=== PATIENT | male | born 1950 | race Caucasian/White ===

== ENCOUNTER 2018-06-03 23:01 | Inpatient (IN) | payer MEDICARE, OTHER ==
[2018-06-03 23:59] LABS: Basophils # (A) 0.1 k/uL (0-0.2); Basophils % (A) 1 %; Eosinophils # (A) 0.2 k/uL (0-0.7); Eosinophils % (A) 2 %; HCT 52.7 % (39.0-53.0); HGB 17.4 gm/dL (13.0-17.5); Lymphocytes % (A) 26 %; MCH 31.5 pg (25.0-35.0); MCHC 32.9 g/dL (31.0-37.0); MCV 95.6 fL (80.0-100.0); Mean Platelet Volume 7.4; Monocytes # (A) 0.8 k/uL (0-1.0); Monocytes % (A) 7 %; Neutrophils % (A) 61 %; Platelet Count 267 k/uL (150-450); RBC 5.52 m/uL (4.30-5.90); RDW 13.6 % (11.5-15.5); WBC 11.5 k/uL (3.8-10.6)
[2018-06-04 00:08] LABS: Anion Gap 12 mmol/L; Blood Urea Nitrogen 16 mg/dL (9-20); Calcium 9.8 mg/dL (8.4-10.2); Carbon Dioxide 22 mmol/L (22-30); Chloride 100 mmol/L (98-107); Glucose 147 mg/dL (74-99); Potassium 4.4 mmol/L (3.5-5.1); Sodium 134 mmol/L (137-145)
[2018-06-04 00:34] LABS: Creatine Kinase MB 1.7 ng/mL (0.0-2.4)
--- NOTE | 2018-06-04 00:35 | XR ---
EXAMINATION TYPE: XR chest 2V DATE OF EXAM: 06/04/2018 COMPARISON: 04/21/2015 HISTORY: Chest pain TECHNIQUE: Frontal and lateral views of the chest are obtained. FINDINGS: There is some linear density in the right upper lobe consistent with scarring. The other l ronald rodriguez are fairly clear. Heart is normal. Thoracic aorta is atheromatous. There is no pleural eff usion. There are chest leads. There is some spurring in the thoracic spine. IMPRESSION: Right upper lobe scarring. Normal heart. No acute lung disease.
[2018-06-04 00:36] LABS: Troponin I 1.64 ng/mL (0.000-0.034)
--- NOTE | 2018-06-04 00:38 | ED ---
General Adult HPI - General Chief complaint: Chest Pain Stated complaint: Chest pain Source: patient Mode of arrival: ambulatory Limitations: no limitations - Related Data Home Medications Medication Instructions Recorded Confirmed No Known Home Medications 06/03/18 06/03/18 Allergies Allergy/AdvReac Type Severity Reaction Status Date / Time No Known Allergies Allergy Verified 06/03/18 23:13 Review of Systems ROS Statement: Those systems with pertinent positive or pertinent negative responses have been documented in the HPI. ROS Other: All systems not noted in ROS Statement are negative. Past Medical History Past Medical History: Coronary Artery Disease (CAD), Chest Pain / Angina, GERD/ Reflux, Hyperlipidemia, Hypertension, Myocardial Infarction (RI), Vascular Disorder Additional Past Medical History / Comment(s): 04/21/15 Pt presented to [facility] ER with chest pain onset 0430 this AM. Pt also had dizziness, lightheadedness associated with the pain. Pt stated in ER that he has been off his meds for about 1 1/2 yrs. Pt being admitted with clinical impression of chest pain. Other HX: NSTEMI 08/09/12, PVD, PAD, R ankle fx 10 yrs ago, infrequent GERD. Last Myocardial Infarction Date:: 08/09/12 History of Any Multi-Drug Resistant Organisms: None Reported Past Surgical History: Heart Catheterization With Stent, Orthopedic Surgery Additional Past Surgical History / Comment(s): 07/2012 PTCA with Stent to intermediate ramus branch, cervical fusion, aortagrams, 11/08/12 L distal SFA atherectomy/ [employer] L SFA, Past Anesthesia/Blood Transfusion Reactions: No Reported Reaction Date of Last Stent Placement:: 07/2012 Past Psychological History: No Psychological Hx Reported Smoking Status: Current every day smoker - Past Family History Father Additional Family Medical History / Comment(s): Pt able recall that his father had a colostomy and in his 70's. Mother Family Medical History: Cancer Additional Family Medical History / Comment(s): Mother of cervical cancer. She was 80 yrs old. General Exam Limitations: no limitations Course Vital Signs 06/03/18 23:04 Temperature 97.7 F Pulse Rate 94 Respiratory 20 Rate Blood Pressure 180/89 O2 Sat by Pulse 97 Oximetry Medical Decision Making - Medical Decision Making Dictation was produced using [employer] dictation software. please excuse any grammatical, word or spelling errors. Chief Complaint: 68-year-old male past medical history of coronary artery disease, dyslipidemia, hypertension presents with chest pain. History of Present Illness: Patient is a 68-year-old male past medical history of coronary artery disease presents with episodic chest pain since last night. Patient states she's been having sharp chest pain that substernal. He had an episode last night. Repeat episode today lasted for several minutes. He took a nitroglycerin with improvement of his symptoms. Patient has a cough, fever, chills. Denies any exertional activity recently. Patient feels a symptomatic at this time. Denies any radiation of symptoms to the shoulders, jaw. No associated diaphoresis, nausea or vomiting. The ROS documented in this emergency department record has been reviewed and confirmed by me. Those systems with pertinent positive or negative responses have been documented in the HPI. All other systems are other negative and/or noncontributory. PHYSICAL EXAM: General Impression: Alert and oriented x3, not in acute distress HEENT: Normocephalic atraumatic, extra-ocular movements intact, pupils equal and reactive to light bilaterally, mucous membranes moist. Cardiovascular: Heart regular rate and rhythm, S1&S2 audible, no murmurs, rubs or gallops Chest: Lungs clear to auscultation bilaterally, no rhonchi, no wheeze, no rales Abdomen: Bowel sounds present, abdomen soft, non-tender, non-distended, no organomegaly Musculoskeletal: Pulses present and equal in all extremities, no peripheral edema Motor: Power 5/5 bilaterally, no focal deficits noted Neurological: CN II-XII grossly intact, no focal motor or sensory deficits noted Skin: Intact with no visualized rashes Psych: Normal affect and mood ED course: 68-year-old male presents with atypical chest pain with typical features. Patient has a lot of risk factors including previous myocardial infarction status post stenting. Patient also reports that his symptoms improved nitroglycerin. As upon arrival are within acceptable limits. Patient is asymptomatic at this time. EKG does not show any signs of ischemia or myocardial infarction.Laboratory evaluation was performed. CBC unremarkable. Metabolic panel was obtained. Cardiac enzymes shows troponin of 1.640. Patient started on heparin. Discussed patient case with Dr. Cruz at 12:46 AM. Started that his troponin is 1.640. He was told that there EKG changes in the lateral leads over no findings of STEMI. Dr. Cruz recommended the patient be admitted started on heparin and given aspirin. Repeat EKG was performed approximately one hour after initial EKG showing deep inverted T waves in the precordial leads again there is no demonstration of ST segment elevation. We discussed patient case with Dr. Cruz who indicates that Cosmetician does not need to be activated at this time given that there is no ST elevation and patient is not having active chest pain at this time. Patient to be admitted to cardiac telemetry for serial troponins and cardiac monitoring EKG interpretation: Ventricular rate 91, sinus rhythm, WI interval 164, QS 106, QTC 445. No WI prolongation, no QTC prolongation, no ST or T-wave changes noted. EKG compared to 04/21/2015 showing no changes. Overall, this EKG is unremarkable - Lab Data Result diagrams: 06/03/18 23:22 06/03/18 23:22 Lab Results 06/03/18 06/03/18 06/03/18 Range/Units 23:22 23:22 23:22 WBC 11.5 H (3.8-10.6) k/uL RBC 5.52 (4.30-5.90) m/uL Hgb 17.4 (13.0-17.5) gm/dL Hct 52.7 (39.0-53.0) % MCV 95.6 (80.0-100.0) fL MCH 31.5 (25.0-35.0) pg MCHC 32.9 (31.0-37.0) g/dL RDW 13.6 (11.5-15.5) % Plt Count 267 (150-450) k/uL Neutrophils % 61 % Lymphocytes % 26 % Monocytes % 7 % Eosinophils % 2 % Basophils % 1 % Neutrophils # 7.0 (1.3-7.7) k/uL Lymphocytes # 3.0 (1.0-4.8) k/uL Monocytes # 0.8 (0-1.0) k/uL Eosinophils # 0.2 (0-0.7) k/uL Basophils # 0.1 (0-0.2) k/uL Sodium 134 L (137-145) mmol/L Potassium 4.4 (3.5-5.1) mmol/L Chloride 100 (98-107) mmol/L Carbon Dioxide 22 (22-30) mmol/L Anion Gap 12 mmol/L BUN 16 (9-20) mg/dL Creatinine 0.77 (0.66-1.25) mg/dL Est GFR (CKD-EPI)AfAm >90 (>60 ml/min/1.73 sqM) Est GFR (CKD-EPI)NonAf >90 (>60 ml/min/1.73 sqM) Glucose 147 H (74-99) mg/dL Calcium 9.8 (8.4-10.2) mg/dL Total Creatine Kinase 64 (55-170) U/L CK-MB (CK-2) 1.7 (0.0-2.4) ng/mL CK-MB (CK-2) Rel Index 2.7 Troponin I 1.640 H* (0.000-0.034) ng/mL Disposition Clinical Impression: ACS (acute coronary syndrome) Disposition: ADMITTED IP TO THIS [facility] Condition: Critical Referrals: David Ellington MD [Primary Care Provider] - 1-2 days Decision Time: 00:57
[2018-06-04] MEDS ORDERED: ASPIRIN 81 MG PO STA (00:40)
[2018-06-04] MEDS ORDERED: HEPARIN SODIUM,PORCINE 5,000 UNIT/ML 1 ML VIAL IV PRN (00:40)
[2018-06-04] MEDS ORDERED: HEPARIN SODIUM,PORCINE 5,000 UNIT/ML 1 ML VIAL IV ONE (00:40)
[2018-06-04] MEDS ORDERED: NITROGLYCERIN SL TABS 0.4 MG TAB SUBLINGUAL PRN ×3 (01:01→13:35)
[2018-06-04] MEDS: HEPARIN SOD,PORK IN 0.45% NACL 25,000 UNIT in 0.45% NACL 1 250ML.BAG IV SCH ×2 (01:07→05:18)
[2018-06-04] MEDS: MAGNESIUM SULFATE-D5W PMX 1 GM in DEXTROSE/WATER 1 100ML.BAG IVPB SCH ×2 (01:12→02:05)
[2018-06-04 01:18] LABS: D-Dimer 0.57 mg/L FEU (<0.60); INR 0.9 (<1.2); Partial Thromboplastin Time 25.1 sec (22.0-30.0); Prothrombin Time 9.9 sec (9.0-12.0)
[2018-06-04 01:58] VITALS: BMI 27.6
[2018-06-04 06:26] LABS: Creatine Kinase MB 1.5 ng/mL (0.0-2.4)
[2018-06-04 06:27] LABS: Troponin I 1.96 ng/mL (0.000-0.034)
[2018-06-04] MEDS ORDERED: ALPRAZolam 0.25 MG TAB PO PRN (08:53)
[2018-06-04] MEDS ORDERED: ALPRAZolam 0.5 MG TAB PO PRN (08:53)
[2018-06-04] MEDS ORDERED: ASPIRIN 325 MG TAB PO STA ×2 (08:53→10:17)
[2018-06-04] MEDS ORDERED: SODIUM CHLORIDE 0.9% 1,000 ML in EMPTY BAG 1 BAG IV ONE (08:53)
[2018-06-04] MEDS ORDERED: ATORVASTATIN 80 MG TAB PO STA (08:57)
--- NOTE | 2018-06-04 09:59 | CONS ---
CONSULTATION CHIEF COMPLAINT: Chest pain. Josiah is a 68-year-old gentleman with history of coronary artery disease on medical therapy, who presented to hospital complaining of chest pain that has been going on for the last several days, moderate to severe intensity, precordial that radiated down both his arms. On admission, his EKG revealed sinus rhythm with extensive anterolateral T- wave inversions. Patient had a cardiac catheterization in April of 2015 that revealed a 40% to 50% stenosis involving proximal circumflex coronary artery and totally occluded distal circumflex coronary artery, small nondominant right coronary artery, patent stent within the first diagonal branch and a totally occluded small second diagonal branch. LAD itself is free of disease. Given patient's clinical presentation, EKG changes and the elevated troponins at 1.6 and 1.9, I advised the patient to undergo cardiac catheterization for further evaluation. He had been explained of risks, benefits and alternatives, understood and accepted. MEDICATIONS: None. ALLERGIES: None. FAMILY HISTORY: Negative for premature coronary artery disease. SOCIAL HISTORY: Significant for smoking and ETOH abuse. There is no history of drug abuse review of systems. REVIEW OF SYSTEMS: HEENT is unremarkable. CARDIAC: As described above. RESPIRATORY: As described above. GI: Negative. GENITOURINARY: Negative. ALLERGY/IMMUNOLOGY: Negative. SKIN: Negative. MUSCULOSKELETAL: Significant for arthritis. PSYCHOSOCIAL: Negative. ENDOCRINE: Negative. CONSTITUTIONAL: Negative. ONCOLOGICAL: Negative. Rest of the system review is not relevant. EXAM: Patient is comfortable at rest. Afebrile. Vital signs are stable. There is no jugular venous distention. Carotid upstroke is normal. There is no bruit. Chest exam reveals good air entry bilaterally. Heart exam reveals first and second heart sounds. Has a systolic murmur at the left lower sternal border. Abdomen is soft. Exam of extremities did not reveal any edema. Peripheral pulses are felt. LABS: Show a hemoglobin of 17.4, platelet count is 260, potassium is 4.4, creatinine is 0.7. Tropes are elevated at 1.6 and 1.9. EKG is abnormal. ASSESSMENT: Acute non-ST segment elevation myocardial infarction. PLAN: Patient will undergo cardiac catheterization with a view to performing angioplasty. MMODL / IJN: [id number] /
[2018-06-04] MEDS ORDERED: LIDOCAINE 1% INJ 10MG/ML (20 ML MDV) ONE (10:42)
[2018-06-04] MEDS ORDERED: IV FLUID CONTINUATION 1,000 ML IV ONE (11:01)
[2018-06-04] MEDS: MIDAZOLAM 2 MG/2 ML VIAL IV ONE ×2 (11:14→12:49)
[2018-06-04] MEDS ORDERED: LIDOCAINE 1% INJ 10MG/ML (20 ML MDV) SQ ONE (11:16)
[2018-06-04] MEDS ORDERED: TICAGRELOR 90 MG TAB ONE (12:05)
[2018-06-04] MEDS ORDERED: BIVALIRUDIN BOLUS 250 MG/50 ML IV ONE (12:08)
[2018-06-04] MEDS ORDERED: TICAGRELOR 90 MG TAB PO ONE (12:10)
[2018-06-04] MEDS ORDERED: BIVALIRUDIN 250 MG in SODIUM CHLORIDE 0.9% 50 ML IV ONE ×2 (12:10→13:03)
[2018-06-04] MEDS ORDERED: IOPAMIDOL-370 125ML BTL INJ ONE (12:11)
--- NOTE | 2018-06-04 12:14 | CC ---
CARDIAC CATHETERIZATION REPORT INDICATION: Non ST-segment elevation CT. PROCEDURE NOTE: After obtaining informed consent, left heart catheterization and coronary angiogram are performed via the right femoral artery using standard Emilio catheters. Patient tolerated the procedure well without any obvious immediate complications. The patient received moderate conscious sedation. Total sedation time was 17 minutes. FINDINGS: 1. HEMODYNAMICS: Left ventricular end-diastolic pressure is 18 mm. There is no significant gradient across aortic valve. 2. LEFT VENTRICULOGRAM: Left ventriculogram is not performed. 3. ANGIOGRAPHIC DATA. Left Main Coronary Artery: Left main coronary artery appears calcified but is free of significant stenosis. Divides into left anterior descending coronary artery and circumflex coronary artery. LAD gives off a large caliber diagonal branch that was previously stented. Stent appears patent. Past the stent there is moderate stenotic lesion noted. LAD shows an 80% focal stenosis in its midportion. The circumflex coronary artery is a large dominant vessel that shows a 90% focal stenosis before it bifurcates into PDA and PLV. CONCLUSION: Severe 2 vessel coronary artery disease as described above. PLAN: Angiographic data was reviewed by Dr. Jc the on-call bowl topper. We will attempt angioplasty of the circumflex which seems the more acute lesion and if it goes well, will perform angioplasty of the LAD also. MMODL / IJN: [id number] /
[2018-06-04] MEDS ORDERED: NITROGLYCERIN 1000MCG/10ML SYRINGE INTRACORON ONE ×2 (12:32→13:21)
[2018-06-04] MEDS ORDERED: IOPAMIDOL-370 100ML BTL INJ ONE ×2 (12:46→13:22)
[2018-06-04 12:49] LABS: Cholesterol 203 mg/dL (<200); HDL Cholesterol 45 mg/dL (40-60); LDL Cholesterol,Calculated 129 mg/dL (0-99); Triglycerides 144 mg/dL (<150)
[2018-06-04] MEDS ORDERED: ONDANSETRON 4 MG/2 ML VIAL ONE (12:59)
[2018-06-04] MEDS ORDERED: ONDANSETRON 4 MG/2 ML VIAL IVP ONE (13:00)
[2018-06-04 13:02] LABS: Creatine Kinase MB 1.4 ng/mL (0.0-2.4)
[2018-06-04 13:07] LABS: Troponin I 2.06 ng/mL (0.000-0.034)
[2018-06-04] MEDS ORDERED: RX INFO: IV CONTRAST WAS GIVEN 1 EACH MISC MISCELLANE PRN (13:35)
[2018-06-04] MEDS ORDERED: ATROPINE SULFATE 0.1 MG/ML 10ML SYRINGE IV PRN (13:35)
[2018-06-04] MEDS ORDERED: ZOLPIDEM 5 MG TAB PO PRN (13:35)
[2018-06-04] MEDS ORDERED: MAG HYDROX/AL HYDROX/SIMETH 30 ML CUP PO PRN (13:35)
[2018-06-04] MEDS ORDERED: SODIUM CHLORIDE 0.9% 1,000 ML IV SCH (13:45)
--- NOTE | 2018-06-04 15:26 | PTCA ---
PERCUTANEOUSTRANS CORORONARY ANGIOGRAPHY Mr. Hutchins is a 68-year-old male with known history of coronary artery disease, history of noncompliance who has stopped all his medication, history of smoking, who presented with non ST-segment elevation myocardial infarction, underwent cardiac catheterization by Dr. Cruz and was found to have a 99% stenosis in the mid dominant left circumflex as well as calcified 70% to 80% stenosis in the proximal LAD. In view of that, recommendation regarding angioplasty and stenting, the procedures, risks and complications were discussed with the patient who is in full understanding and agreement. The procedure is a 6-Armenian FR4 guiding catheter introduced into the system after cannulating the left main, a 0.014 balanced medium weight J-wire was advanced into the system but was unable to cross the lesion. Subsequently, a 0.014 whisper J- wire was advanced across the lesion, positioned distally with the help of a FineCross catheter. The FineCross catheter was removed and a 2.5 x 12 mm Trek balloon was advanced and one inflation at 8 atmospheres was done. Following that, the balloon was removed and another whisper 0.014 balanced medium J-wire was advanced next to the first one in a rah fashion. Subsequently attempt to advance a 2.5 x 12 mm Xience Roxane stent, a 2.5 x 8 mm Xience Roxane stent and a 2.0 x 8 mm rosario stent were unsuccessful to advance into the proximal left circumflex because of tortuosity and calcification in spite of attempting to use a GuideLiner. At that time using the FineCross catheter, the whisper J-wire was exchanged to a Mailman 0.014 and positioned distally and another 0.014 whisper J-wire was positioned in the distal left circumflex. With the Mailman and the whisper J I was able to advance and position the 2.5 X12 mm Xience Roxane in the mid lesion of the circumflex. The stent was deployed, postdilated to 16 atmospheres. After the last inflation, after appropriate wait, the balloon and the guidewire were withdrawn back in the guiding catheter. Images were obtained and repeated. Those images reveal stable successful stenting. At that point, the guiding catheter, the balloon and the guidewire removed. The sheath was removed. Hemostasis was obtained with Angio-Seal. There was no immediate complication. Patient is returned to his room in stable condition. Of note, the patient had chest discomfort with no significant EKG changes. The chest discomfort resolved at the end of the procedure. RESULTS: Successful stenting of the mid left circumflex in a heavily calcified segment with reduction of stenosis from 99% to 0%. RECOMMENDATION: Patient be continued on aspirin, Brilinta, beta sun, JATINDER inhibitor, and statin. Depending on his progress, he will be evaluated to undergo percutaneous revascularization of his LAD. Those findings and recommendation were discussed with the patient and his family and are in full understanding and agreement. Duration of the procedure is 80 minutes. MMODL / IJN: [id number] / MTDD
--- NOTE | 2018-06-04 16:50 | P.HPIM ---
History of Present Illness H&P Date: 06/04/18 Chief Complaint: Chest pain Chief Complaint: Chest pain, history of CAD, PAD, hypertension, hyperlipidemia 67-year-old male one of Dr. Ellington's for which he hasn't been seen since the past 3 years patient with past medical history of CAD 2013 post-PCI history of PAD post PTBA in the past with history of hypertension and hyperlipidemia presenting to the emergency room secondary to chest discomfort, off and on for the past 2 weeks however this became intense the morning of admission requiring 1 tablet of sublingual nitroglycerin, patient has been noncompliant with medications for the past 3 years. This has relieved the pain , and subsequently was seen in the emergency room and was admitted for a non- STEMI patient complains of chest pain intermittently, along with effort related shortness of breath, patient denies any lower extremity edema, no cough no fever no chills, denies any palpitations. In the emergency room EKG shows normal sinus rhythm with occasional PVCs, left atrial enlargement, ST-T wave changes with asymmetric T-T changes depression in V4 V5 V6, and lids 23 and aVF. Troponin on admission was 1.6, 1.9, 2.0, LDL is 129 d-dimer negative INR 1.9. Consults were made with Dr. Redmond performed cardiac cath 06/04/2018 showing moderate stenotic lesion LAD 80%, 90% circumflex before it bifurcates into the PDA Dr. Jc is on-call interventional stenting off the mid circumflex 99% stenosis which is heavily calcified, with successful stenting down to 0. Review of Systems Constitutional: Reports as per HPI, Denies anorexia, Denies chills, Denies chronic headaches, Denies chronic pain, Denies daytime sleepiness, Denies fatigue, Denies fever, Denies lethargy, Denies malaise, Denies night sweats, Denies poor appetite, Denies sweats, Denies weakness, Denies weight gain, Denies weight loss Ears, nose, mouth and throat: Reports as per HPI, Denies ant. neck pain, Denies bleeding gums, Denies dental pain, Denies dysphagia, Denies epistaxis, Denies headache, Denies hoarseness, Denies mouth pain, Denies nasal congestion, Denies nasal discharge, Denies neck fullness/pressure, Denies neck lump, Denies nose pain, Denies odynophagia, Denies post-nasal drip, Denies sinus pain, Denies sinus pressure, Denies swelling in mouth, Denies swelling in throat, Denies sore throat, Denies vertigo, Denies voice changes Cardiovascular: Reports as per HPI, Reports chest pain, Reports decreased exercise tolerance, Reports shortness of breath Respiratory: Reports as per HPI, Denies congestion, Denies cough, Denies cough with sputum, Denies dyspnea, Denies excessive sputum, Denies hemoptysis, Denies home oxygen, Denies pain, Denies pain on inspiration, Denies pleurisy, Denies respiratory infections, Denies sleep apnea, Denies snoring, Denies wheezing Gastrointestinal: Reports as per HPI, Denies abdominal pain, Denies belching, Denies bloating, Denies BRBPR, Denies change in bowel habits, Denies coffee ground emesis, Denies constipation, Denies diarrhea, Denies dyspepsia, Denies early satiety, Denies excessive gas, Denies heartburn, Denies hematemesis, Denies hematochezia, Denies indigestion, Denies jaundice, Denies lactose intolerance, Denies loss of appetite, Denies melena, Denies nausea, Denies vomiting Genitourinary: Reports as per HPI, Denies decreased libido, Denies difficulties fathering child, Denies discharge, Denies dysuria, Denies erectile dysfunction, Denies flank pain, Denies genital pain, Denies genital sores, Denies hematuria, Denies impotence, Denies incontinence, Denies kidney stones, Denies nocturia, Denies polyuria, Denies testicular lump, Denies testicular pain, Denies urinary frequency, Denies urinary hesitancy, Denies urinary retention Musculoskeletal: Reports as per HPI Integumentary: Reports as per HPI Neurological: Reports as per HPI, Denies aphasia, Denies ataxia, Denies balance difficulties, Denies burning pain, Denies change in mentation, Denies change in smell/taste, Denies change in speech, Denies confusion, Denies convulsions, Denies double vision, Denies gait dysfunction, Denies head injury, Denies headaches, Denies hearing difficulties, Denies lack of coordination, Denies loss of vision, Denies memory loss, Denies migraines, Denies motor disturbance, Denies numbness, Denies paralysis, Denies paresthesias, Denies seizures, Denies sensory deficit, Denies spasticity, Denies syncope, Denies tic, Denies tingling , Denies transient paralysis, Denies tremors, Denies vertigo, Denies weakness, Denies visual changes Psychiatric: Reports as per HPI Endocrine: Reports as per HPI Hematologic/Lymphatic: Reports as per HPI, Denies easy bleeding, Denies easy bruising, Denies lymphadenopathy, Denies lymphedema, Denies thrombophilia Allergic/Immunologic: Reports as per HPI, Denies allergic rhinitis, Denies anaphylaxis, Denies angioedema, Denies gluten intolerance, Denies persistent infections, Denies seasonal allergies, Denies urticaria, Denies wheezing Past Medical History Past Medical History: Coronary Artery Disease (CAD), Chest Pain / Angina, GERD/ Reflux, Hyperlipidemia, Hypertension, Myocardial Infarction (AR), Vascular Disorder Additional Past Medical History / Comment(s): 04/21/15 Pt presented to [facility] ER with chest pain onset 0430 this AM. Pt also had dizziness, lightheadedness associated with the pain. Pt stated in ER that he has been off his meds for about 1 1/2 yrs. Pt being admitted with clinical impression of chest pain. Other HX: NSTEMI 08/09/12, PVD, PAD, R ankle fx 10 yrs ago, infrequent GERD. Last Myocardial Infarction Date:: 08/09/12 History of Any Multi-Drug Resistant Organisms: None Reported Past Surgical History: Heart Catheterization With Stent, Orthopedic Surgery Additional Past Surgical History / Comment(s): 07/2012 PTCA with Stent to intermediate ramus branch, cervical fusion, aortagrams, 11/08/12 L distal SFA atherectomy/ [employer] L SFA, Past Anesthesia/Blood Transfusion Reactions: No Reported Reaction Date of Last Stent Placement:: 07/2012 Past Psychological History: No Psychological Hx Reported Additional Psychological History / Comment(s): Pt lives with his brother. He is independent. He uses no assistive device. He drives a car. Smoking Status: Current every day smoker Past Alcohol Use History: Daily Additional Past Alcohol Use History / Comment(s): Pt states he started smoking around 1982 and is about 1 ppd smoker. He drinks alcohol daily-he likes beer or mixed drinks. He states he probably goes over 14 drinks a week. Past Drug Use History: None Reported - Past Family History Father Additional Family Medical History / Comment(s): Pt able recall that his father had a colostomy and in his 70's. Mother Family Medical History: Cancer Additional Family Medical History / Comment(s): Mother of cervical cancer. She was 80 yrs old. Medications and Allergies Home Medications Medication Instructions Recorded Confirmed Type No Known Home Medications 06/03/18 06/03/18 History Allergies Allergy/AdvReac Type Severity Reaction Status Date / Time No Known Allergies Allergy Verified 06/03/18 23:13 Physical Exam Vitals: Vital Signs Temp Pulse Pulse Resp BP BP Pulse Ox 06/04/18 08:00 97.4 F L 18 145/67 06/04/18 04:00 66 16 112/55 98 06/04/18 03:18 16 06/04/18 01:25 96.2 F L 86 16 176/79 95 06/04/18 01:13 80 16 151/75 97 06/04/18 01:00 97.7 F 74 18 151/70 97 06/03/18 23:04 97.7 F 94 20 180/89 97 Intake and Output 06/03/18 06/04/18 06/04/18 22:59 06:59 14:59 Intake Total 50 Balance 50 Intake: IV 50 Oral 0 Other: Voiding Method Toilet # Voids 0 Weight 90 kg - Constitutional General appearance: cooperative, no acute distress - EENT Eyes: anicteric sclerae, EOMI, PERRLA, dentition normal, normal appearance ENT: hearing grossly normal, NA/AT, normal oropharynx - Neck Neck: no lymphadenopathy, normal ROM, no other, no rigidity, no stridor, no thyromegaly - Respiratory Respiratory: bilateral: CTA, negative: diminished, dullness, rales, rhonchi, wheezing, prolonged expiration - Cardiovascular Rhythm: regular Heart sounds: normal: S1, S2 Abnormal Heart Sounds: no systolic murmur, no diastolic murmur, no rub, no S3 Gallop, no S4 Gallop, no click, no other - Gastrointestinal General gastrointestinal: normal bowel sounds, soft - Integumentary Integumentary: decreased turgor, normal (Dorsalis pedis pulses left side is diminished or absent) - Neurologic Neurologic: CNII-XII intact - Musculoskeletal Musculoskeletal: gait normal, strength equal bilaterally - Psychiatric Psychiatric: A&O x's 3, appropriate affect Results CBC & Chem 7: 06/03/18 23:22 06/03/18 23:22 Labs: Abnormal Lab Results - Last 24 Hours (Table) 06/03/18 06/03/18 06/03/18 Range/Units 23:22 23:22 23:22 WBC 11.5 H (3.8-10.6) k/uL Sodium 134 L (137-145) mmol/L Glucose 147 H (74-99) mg/dL Troponin I 1.640 H* (0.000-0.034) ng/mL Cholesterol (<200) mg/dL LDL Cholesterol, Calc (0-99) mg/dL 06/04/18 06/04/18 06/04/18 Range/Units 05:41 11:51 11:51 WBC (3.8-10.6) k/uL Sodium (137-145) mmol/L Glucose (74-99) mg/dL Troponin I 1.960 H* 2.060 H* (0.000-0.034) ng/mL Cholesterol 203 H (<200) mg/dL LDL Cholesterol, Calc 129 H (0-99) mg/dL Laboratory Results WBC 11.5 k/uL (3.8-10.6) H 06/03/18 23:22 RBC 5.52 m/uL (4.30-5.90) 06/03/18 23:22 Hgb 17.4 gm/dL (13.0-17.5) 06/03/18 23:22 Hct 52.7 % (39.0-53.0) 06/03/18 23:22 MCV 95.6 fL (80.0-100.0) 06/03/18 23:22 MCH 31.5 pg (25.0-35.0) 06/03/18 23:22 MCHC 32.9 g/dL (31.0-37.0) 06/03/18 23:22 RDW 13.6 % (11.5-15.5) 06/03/18 23:22 Plt Count 267 k/uL (150-450) 06/03/18 23:22 Neutrophils % 61 % 06/03/18 23:22 Lymphocytes % 26 % 06/03/18 23:22 Monocytes % 7 % 06/03/18 23:22 Eosinophils % 2 % 06/03/18 23:22 Basophils % 1 % 06/03/18 23:22 Neutrophils # 7.0 k/uL (1.3-7.7) 06/03/18 23:22 Lymphocytes # 3.0 k/uL (1.0-4.8) 06/03/18 23:22 Monocytes # 0.8 k/uL (0-1.0) 06/03/18 23:22 Eosinophils # 0.2 k/uL (0-0.7) 06/03/18 23:22 Basophils # 0.1 k/uL (0-0.2) 06/03/18 23:22 PT 9.9 sec (9.0-12.0) 06/04/18 00:55 INR 0.9 (<1.2) 06/04/18 00:55 APTT 29.0 sec (22.0-30.0) 06/04/18 08:20 D-Dimer 0.57 mg/L FEU (<0.60) 06/04/18 00:55 Sodium 134 mmol/L (137-145) L 06/03/18 23:22 Potassium 4.4 mmol/L (3.5-5.1) 06/03/18 23:22 Chloride 100 mmol/L (98-107) 06/03/18 23:22 Carbon Dioxide 22 mmol/L (22-30) 06/03/18 23:22 Anion Gap 12 mmol/L 06/03/18 23:22 BUN 16 mg/dL (9-20) 06/03/18 23:22 Creatinine 0.77 mg/dL (0.66-1.25) 06/03/18 23:22 Est GFR (CKD-EPI)AfAm >90 (>60 ml/min/1.73 sqM) 06/03/18 23:22 Est GFR (CKD-EPI)NonAf >90 (>60 ml/min/1.73 sqM) 06/03/18 23:22 Glucose 147 mg/dL (74-99) H 06/03/18 23:22 Calcium 9.8 mg/dL (8.4-10.2) 06/03/18 23:22 Magnesium 2.2 mg/dL (1.6-2.3) 06/03/18 23:22 Total Creatine Kinase 57 U/L (55-170) 06/04/18 11:51 CK-MB (CK-2) 1.4 ng/mL (0.0-2.4) 06/04/18 11:51 CK-MB (CK-2) Rel Index 2.5 06/04/18 11:51 Troponin I 2.060 ng/mL (0.000-0.034) H* 06/04/18 11:51 Triglycerides 144 mg/dL (<150) 06/04/18 11:51 Cholesterol 203 mg/dL (<200) H 06/04/18 11:51 LDL Cholesterol, Calc 129 mg/dL (0-99) H 06/04/18 11:51 HDL Cholesterol 45 mg/dL (40-60) 06/04/18 11:51 Thrombosis Risk Factor Assmnt - DVT/VTE Prophylaxis DVT/VTE Prophylaxis: Pharmacologic Prophylaxis ordered - Choose All That Apply Any of the Below Risk Factors Present?: Yes Each Factor Represents 1 point: Acute AR, Obesity (BMI >25) Other Risk Factors: Yes Each Risk Factor Represents 2 Points: Age 61-74 years Thrombosis Risk Factor Assessment Total Risk Factor Score: 4 Thrombosis Risk Factor Assessment Level: Moderate Risk Assessment and Plan Plan: 1 acute NSTEMI had history of CAD post PCI in the past but still smoking noncompliance regimen requiring successful stenting of the left circumflex he also has residual stenosis focal stenosis in the LAD midportion, 80%,, the previously stented diagonal branch free of stenosis currently requiring metoprolol 25 mg twice a day, Alimta 90 mg twice a day, Lipitor 80 mg daily lisinopril 5 mg twice a day 2 medication noncompliance prior to admission, regimen is reinforced for future risk reduction 3 hypertension: See above 4 hyperlipidemia: on atorvastatin 80 mg a day continue medication. 5 hypothyroidism: Not on medication prior to admission will recheck TSH 6 smoking: Smoking cessation was addressed patient will be on nicotine patch 14 mg daily offered, not yet ready for this. 7 GI prophylaxis: Patient will be on Pepcid 20 mg daily. DVT prophylaxis: Patient is on heparin drip on admission now will be transitioned to subcu heparin Mild polycythemia: Most likely secondary to smoking we watch symptoms closely. Hyper glycemia: Accu-Chek with sliding scales coverage and be done watch blood sugar. Hemoglobin A1c to be done PAD, with claudication left leg, prior PTBA left leg, unknown site patient needs to arrange for outpatient vascular imaging studies, smoking cessation CODE STATUS: Full code.
[2018-06-04] MEDS: METOPROLOL TARTRATE 25 MG TAB PO SCH (19:58)
[2018-06-04] MEDS: TICAGRELOR 90 MG TAB PO SCH (19:58)
[2018-06-04] MEDS: LISINOPRIL 5 MG TAB PO SCH (19:58)
[2018-06-04 20:03] VITALS: RESP 16
[2018-06-04 21:40] LABS: Hemoglobin A1C 5.9 % (4.0-6.0)
[2018-06-05 05:47] LABS: Anion Gap 6 mmol/L; Blood Urea Nitrogen 12 mg/dL (9-20); Calcium 9.1 mg/dL (8.4-10.2); Carbon Dioxide 23 mmol/L (22-30); Chloride 105 mmol/L (98-107); Cholesterol 188 mg/dL (<200); Glucose 105 mg/dL (74-99); HDL Cholesterol 45 mg/dL (40-60); LDL Cholesterol,Calculated 124 mg/dL (0-99); Potassium 4.4 mmol/L (3.5-5.1); Sodium 134 mmol/L (137-145); Triglycerides 93 mg/dL (<150)
[2018-06-05] MEDS ORDERED: ASPIRIN 81 MG PO SCH (09:00)
[2018-06-05] MEDS ORDERED: ASPIRIN 325 MG TAB PO SCH (09:00)
[2018-06-05] MEDS: TICAGRELOR 90 MG TAB PO SCH (09:55)
[2018-06-05] MEDS: LISINOPRIL 5 MG TAB PO SCH (09:55)
[2018-06-05] MEDS: METOPROLOL TARTRATE 25 MG TAB PO SCH (09:55)
[2018-06-05 10:42] VITALS: TEMP 96.8
--- NOTE | 2018-06-05 10:53 | ECHOF ---
Referral Reason:cad MEASUREMENTS -------- HEIGHT: 180.3 cm WEIGHT: 88.0 kg BP: 132/60 RVIDd: 3.2 cm (< 3.3) IVSd: 1.6 cm (0.6 - 1.1) LVIDd: 4.8 cm (3.9 - 5.3) LVPWd: 1.5 cm (0.6 - 1.1) IVSs: 2.0 cm LVIDs: 3.7 cm LVPWs: 1.9 cm LA Diam: 3.9 cm (2.7 - 3.8) LAESV Index (A-L): 26.22 ml/m Ao Diam: 4.0 cm (2.0 - 3.7) AV Cusp: 2.3 cm (1.5 - 2.6) EPSS: 0.7 cm MV E Elliot: 0.61 m/s MV DecT: 334 ms MV A Elliot: 0.78 m/s MV E/A Ratio: 0.78 RAP: 5.00 mmHg RVSP: 26.47 mmHg MV EF SLOPE: 49.58 mm/s (70 - 150) MV EXCURSION: 1.30 cm (> 18.000) FINDINGS -------- Sinus rhythm. This was a technically adequate study. The left ventricular size is normal. There is moderate concentric left ventricular hypertrophy. O verall left ventricular systolic function is low-normal with, an EF between 50 - 55 %. Basal inferi or LV wall motion is hypokinetic. Basal inferoseptal LV wall motion is hypokinetic. The right ventricle is normal in size. Normal LA size by volume 22+/-6 ml/m2. The right atrium is normal in size. The aortic valve is trileaflet, and appears structurally normal. No aortic stenosis or regurgitation. Mild mitral annular calcification present. Mild mitral regurgitation is present. Mild tricuspid regurgitation present. Right ventricular systolic pressure is normal at < 35 mmHg. The right ventricular systolic pressure, as measured by Doppler, is 26.47mmHg. Trace/mild (physiologic) pulmonic regurgitation. The aortic root is dilated measuring 4.0cm. Normal inferior vena cava with normal inspiratory collapse consistent with estimated right atrial pre ssure of 5 mmHg. There is no pericardial effusion. CONCLUSIONS -------- 1. Sinus rhythm. 2. This was a technically adequate study. 3. The left ventricular size is normal. 4. There is moderate concentric left ventricular hypertrophy. 5. Overall left ventricular systolic function is low-normal with, an EF between 50 - 55 %. 6. Basal inferior LV wall motion is hypokinetic. 7. Basal inferoseptal LV wall motion is hypokinetic. 8. The right ventricle is normal in size. 9. Normal LA size by volume 22+/-6 ml/m2. 10. The right atrium is normal in size. 11. The aortic valve is trileaflet, and appears structurally normal. No aortic stenosis or regurgitat ion. 12. Mild mitral annular calcification present. 13. Mild mitral regurgitation is present. 14. Mild tricuspid regurgitation present. 15. Right ventricular systolic pressure is normal at < 35 mmHg. 16. Trace/mild (physiologic) pulmonic regurgitation. 17. The aortic root is dilated measuring 4.0cm. 18. Normal inferior vena cava with normal inspiratory collapse consistent with estimated right atrial pressure of 5 mmHg. 19. There is no pericardial effusion. HIM CODER: ANTHONY Barrientos
[2018-06-05 12:00] VITALS: BP 115/58; PULSE 57
--- NOTE | 2018-06-05 12:53 | P.PN ---
Subjective Progress Note Date: 06/05/18 Principal diagnosis: Non-STEMI This is a 68-year-old gentleman with known history of coronary artery disease who presented to the hospital with a non-Q-wave myocardial infarction. He was taken to the cardiac catheterization lab where he underwent stenting of the circumflex artery. Patient was also found to have significant blockage in the LAD. He was seen and examined this morning, denies any chest discomfort, states he had a mild episode of dizziness earlier this morning. We did check orthostatics which came back to be negative. I also had him up ambulating in the hallway subsequent to that, he had no further episodes of any dizziness. EKG from this morning shows a normal sinus rhythm with ST-T wave changes noted in the anterior lateral leads, no new changes from post-PCI. Blood pressure this morning 124/60 with a heart rate in the 70s, 97% on room air. Sodium 134, potassium 4.4, BUN 12 and creatinine 0.7. TSH level is normal. Objective - Vital Signs Vital signs: Vital Signs Temp 96.8 F L 06/05/18 11:57 Pulse 57 L 06/05/18 11:57 Resp 16 06/05/18 11:57 BP 115/58 06/05/18 11:57 Pulse Ox 97 06/05/18 11:57 Intake & Output 06/04/18 06/05/18 06/05/18 18:59 06:59 18:59 Intake Total 460 125 Output Total 550 Balance -90 125 Weight 90 kg 88 kg Intake: IV 220 Intake, IV Titration 5 Amount Sodium Chloride 0.9% 1, 5 000 ml @ 100 mls/hr IV . Q10H [facility] Rx#:[id number] Oral 240 120 Output: Urine 550 Other: Voiding Method Toilet # Voids 1 - Exam PHYSICAL EXAMINATION: GENERAL: 68-year-old gentleman in no acute distress at the time of my examination HEENT: Head is atraumatic, normocephalic. Pupils equal, round. Sclera anicteric. Conjunctiva are clear. Mucous membranes of the mouth are moist. Neck is supple. There is no elevated jugular venous pressure. No carotid bruit is heard. HEART EXAMINATION: Heart S1, S2 normal. No murmur or gallop heard. CHEST EXAMINATION: Lungs are clear to auscultation and precussion. No chest wall tenderness is noted on palpation or with deep breathing. ABDOMEN: Soft, nontender. Bowel sounds are heard. No organomegaly noted. EXTREMITIES: 2+ peripheral pulses with no evidence of peripheral edema and no calf tenderness noted. Right groin is soft, no evidence of any hematoma. NEUROLOGIC patient is awake, alert and oriented 3 . . - Labs CBC & Chem 7: 06/03/18 23:22 06/05/18 05:17 Labs: Abnormal Lab Results - Last 24 Hours (Table) 06/04/18 06/04/18 06/05/18 Range/Units 11:51 11:51 05:17 Sodium 134 L (137-145) mmol/L Glucose 105 H (74-99) mg/dL Troponin I 2.060 H* (0.000-0.034) ng/mL Cholesterol 203 H (<200) mg/dL LDL Cholesterol, Calc 129 H 124 H (0-99) mg/dL Assessment and Plan Plan: Assessment and plan #1 non-ST elevation myocardial infarction, status post angioplasty and stenting of the circumflex artery. Patient also has disease in the LAD. He has been advised to return to the hospital on Friday of next week at which time Dr. Jc will perform intervention of the LAD. #2 history of medication noncompliance #3 hypertension #4 hyperlipidemia #5 hypothyroidism #6 nicotine dependence Plan Echocardiogram with Doppler study was performed which revealed an ejection fraction of 50-55% with evidence of basal inferior and inferior septal hypokinesia. From cardiology standpoint, patient may be able to be discharged home today. He will return on Friday of next week for intervention of the LAD. The patient will be discharged home on aspirin 81 mg daily, Lipitor 80 mg daily, lisinopril 5 mg twice a day, metoprolol 25 mg one tablet by mouth twice a day, Brilinta 90 mg one tablet by mouth twice a day and sublingual nitroglycerin as needed for chest pain. Because of the cost of the Brilinta being excessively high, patient will be provided a free month supply, at the end of that month patient will start on Plavix 75 mg daily. He has been educated regarding this and prescriptions as well as medications have been provided to the patient. DNP note has been reviewed, I agree with a documented findings and plan of care. Patient was seen and examined.
--- NOTE | 2018-06-05 14:00 | P.DS ---
Providers Date of admission: 06/04/18 01:12 Expected date of discharge: 06/05/18 Attending physician: Sunshine Maxwell Consults: 06/04/18 01:01 Consult Physician Urgent Consulting Provider: Angelito Cruz Consult Reason/Comments: acs Do you want consulting provider notified?: Already Contacted 06/04/18 13:35 Consult Physician Routine Consulting Provider: [facility] Consult Reason/Comments: Post Interventional patient Do you want consulting provider notified?: Already Contacted Primary care physician: David Ellington Hospital Course: 67-year-old male one of Dr. Ellington's for which he hasn't been seen since the past 3 years patient with past medical history of CAD 2013 post-PCI history of PAD post PTBA in the past with history of hypertension and hyperlipidemia presenting to the emergency room secondary to chest discomfort, off and on for the past 2 weeks however this became intense the morning of admission requiring 1 tablet of sublingual nitroglycerin, patient has been noncompliant with medications for the past 3 years. This has relieved the pain , and subsequently was seen in the emergency room and was admitted for a non- STEMI patient complains of chest pain intermittently, along with effort related shortness of breath, patient denies any lower extremity edema, no cough no fever no chills, denies any palpitations. In the emergency room EKG shows normal sinus rhythm with occasional PVCs, left atrial enlargement, ST-T wave changes with asymmetric T-T changes depression in V4 V5 V6, and lids 23 and aVF. Troponin on admission was 1.6, 1.9, 2.0, LDL is 129 d-dimer negative INR 1.9. Consults were made with Dr. Redmond performed cardiac cath 06/04/2018 showing moderate stenotic lesion LAD 80%, 90% circumflex before it bifurcates into the PDA Dr. Jc is on-call interventional stenting of the mid circumflex 99% stenosis which is heavily calcified, with successful stenting down to 0. 06/05: Patient has been afebrile, blood pressure 132/60, heart rate running in the 60s, pulse ox 95% on room air. Triglycerides 93, cholesterol 188, LDL 124, HDL 45, TSH 4.130, creatinine 0.75. 06/06: The patient has been afebrile, heart rate running in the 50s and 60s currently blood pressure 115/58. Patient did have episode of dizziness and orthostatics were negative. Pulse ox 97% on room air. Patient has been seen by cardiology and cleared for discharge. Cardiology has provided prescriptions for all his new medications. He declines need for nicotine patch. Patient will be discharged home today in stable condition. Discharge diagnoses: 1 acute NSTEMI had history of CAD post PCI in the past but still smoking noncompliance with medication status post stenting of the left circumflex he also has residual stenosis focal stenosis in the LAD midportion, 80%the previously stented diagonal branch free of stenosis 2 medication noncompliance prior to admission, regimen is reinforced for future risk reduction 3 hypertension: See above 4 hyperlipidemia: 5 hypothyroidism: 6 smoking: Smoking cessation was addressed 7 Mild polycythemia: Most likely secondary to smoking 8 Hyper glycemia: A1c 5.9 9 PAD, with claudication left leg, prior PTBA left leg Discharge plan: Home Impression and plan of care have been directed as dictated by the signing physician. Nazanin Patiño nurse practitioner acting as scribe for signing physician. Patient Condition at Discharge: Good Plan - Discharge Summary Discharge Rx Participant: No New Discharge Prescriptions: New Aspirin 81 mg PO DAILY #30 chew Atorvastatin [Lipitor] 80 mg PO HS #30 tab Lisinopril [Zestril] 5 mg PO BID #60 tab Metoprolol Tartrate [Lopressor] 25 mg PO BID #60 tab Nitroglycerin Sl Tabs [Nitrostat] 0.4 mg SUBLINGUAL Q5M PRN #25 tab PRN Reason: Chest Pain Ticagrelor [Brilinta] 90 mg PO BID #60 tab Discharge Medication List Aspirin 81 mg PO DAILY #30 chew 06/05/18 [Rx] Atorvastatin [Lipitor] 80 mg PO HS #30 tab 06/05/18 [Rx] Lisinopril [Zestril] 5 mg PO BID #60 tab 06/05/18 [Rx] Metoprolol Tartrate [Lopressor] 25 mg PO BID #60 tab 06/05/18 [Rx] Nitroglycerin Sl Tabs [Nitrostat] 0.4 mg SUBLINGUAL Q5M PRN #25 tab 06/05/18 [Rx ] Ticagrelor [Brilinta] 90 mg PO BID #60 tab 06/05/18 [Rx] Follow up Appointment(s)/Referral(s): David Ellington MD [Primary Care Provider] - 1 Week (Please follow up after future cardiac catheterization.) Angelito Cruz MD [STAFF PHYSICIAN] - As Needed (Hospital will contact you about future cardiac cath appointment for next Friday.) Patient Instructions/Handouts: Heart Healthy Diet (DC), Coronary Intravascular Stent Placement (DC)
[2018-06-05] MEDS ORDERED: ATORVASTATIN 80 MG TAB PO SCH (21:00)
== END 2018-06-05 15:16 | disposition home or self-care (01) | DRG 247 ==
LOC: EC 23:01 → 3SCARD 06-04 01:12
PROVIDERS: ADMIT Family Medicine; ATTEND Family Medicine
PROC: B2111ZZ Fluoroscopy of Multiple Coronary Arteries using Low Osmolar Contrast (ICD-10-PCS; 2018-06-04)
PROC: 4A023N7 Measurement of Cardiac Sampling and Pressure, Left Heart, Percutaneous Approach (ICD-10-PCS; principal; 2018-06-04 10:46)
PROC: 027034Z Dilation of Coronary Artery, One Artery with Drug-eluting Intraluminal Device, Percutaneous Approach (ICD-10-PCS; 2018-06-04 10:46)
DX: I21.4 Non-ST elevation (NSTEMI) myocardial infarction (principal); I25.10 Atherosclerotic heart disease of native coronary artery without angina pectoris; E78.5 Hyperlipidemia, unspecified; E03.9 Hypothyroidism, unspecified; I73.9 Peripheral vascular disease, unspecified; D75.1 Secondary polycythemia; R73.9 Hyperglycemia, unspecified; I25.82 Chronic total occlusion of coronary artery; I11.9 Hypertensive heart disease without heart failure; I25.84 Coronary atherosclerosis due to calcified coronary lesion; F17.210 Nicotine dependence, cigarettes, uncomplicated; I49.3 Ventricular premature depolarization; K21.9 Gastro-esophageal reflux disease without esophagitis; F10.10 Alcohol abuse, uncomplicated; Z95.5 Presence of coronary angioplasty implant and graft; Z71.6 Tobacco abuse counseling; I25.2 Old myocardial infarction; Z79.899 Other long term (current) drug therapy; Z91.128 Patient's intentional underdosing of medication regimen for other reason
CPT/HCPCS: 36415; 71046; 80048; 80061; 82550; 82553; 83036; 83735; 84443; 84484; 85025; 85347; 85379; 85610; 85730; 93005; 93306; 93458; 99285; C1874

== ENCOUNTER 2018-06-10 12:17 | Day surgery (SDC) | payer MEDICARE ==
[2018-06-09 13:55] VITALS: BMI 27.3
[~2018-06-10 12:17] MED LIST: ALPRAZolam 0.25 MG TAB PO PRN; ALPRAZolam 0.5 MG TAB PO PRN; ASPIRIN 325 MG TAB PO STA; ATORVASTATIN 80 MG TAB PO ONE; NITROGLYCERIN SL TABS 0.4 MG TAB SUBLINGUAL PRN; SODIUM CHLORIDE 0.9% 1,000 ML in EMPTY BAG 1 BAG IV ONE
[2018-06-10] MEDS ORDERED: ASPIRIN 81 MG ONE (12:48)
[2018-06-10] MEDS ORDERED: SODIUM CHLORIDE 0.9% 1,000 ML IV ONE (13:01)
[2018-06-10] MEDS ORDERED: VERAPAMIL 2.5 MG/ML 2 ML AMP ONE (13:05)
[2018-06-10] MEDS ORDERED: fentaNYL (PF) 50 MCG/ML 2 ML AMP ONE (13:05)
[2018-06-10] MEDS ORDERED: LIDOCAINE 1% INJ 10MG/ML (20 ML MDV) ONE (13:05)
[2018-06-10] MEDS ORDERED: fentaNYL (PF) 50 MCG/ML 2 ML AMP IVP ONE (13:15)
[2018-06-10] MEDS ORDERED: LIDOCAINE 1% INJ 10MG/ML (20 ML MDV) SQ ONE (13:20)
[2018-06-10 13:34] LABS: Basophils # (A) 0.1 k/uL (0-0.2); Basophils % (A) 1 %; Eosinophils # (A) 0.4 k/uL (0-0.7); Eosinophils % (A) 4 %; HCT 47.9 % (39.0-53.0); Lymphocytes # (A) 1.6 k/uL (1.0-4.8); Lymphocytes % (A) 16 %; MCHC 33.3 g/dL (31.0-37.0); MCV 93.2 fL (80.0-100.0); Mean Platelet Volume 7.6; Monocytes # (A) 0.7 k/uL (0-1.0); Monocytes % (A) 7 %; Neutrophils % (A) 69 %; Platelet Count 333 k/uL (150-450); RBC 5.14 m/uL (4.30-5.90); RDW 13.5 % (11.5-15.5); WBC 10.1 k/uL (3.8-10.6)
[2018-06-10] MEDS ORDERED: BIVALIRUDIN 250 MG in SODIUM CHLORIDE 0.9% 50 ML IV ONE (13:42)
[2018-06-10] MEDS ORDERED: BIVALIRUDIN BOLUS 250 MG/50 ML IV ONE (13:42)
[2018-06-10] MEDS ORDERED: NITROGLYCERIN 1000MCG/10ML SYRINGE INTRAARTER ONE (13:46)
[2018-06-10] MEDS ORDERED: IOPAMIDOL-370 125ML BTL INJ ONE (13:55)
[2018-06-10] MEDS ORDERED: NITROGLYCERIN SL TABS 0.4 MG TAB SUBLINGUAL PRN (14:06)
[2018-06-10] MEDS ORDERED: RX INFO: IV CONTRAST WAS GIVEN 1 EACH MISC MISCELLANE PRN (14:06)
[2018-06-10] MEDS ORDERED: ZOLPIDEM 5 MG TAB PO PRN (14:06)
[2018-06-10] MEDS ORDERED: MAG HYDROX/AL HYDROX/SIMETH 30 ML CUP PO PRN (14:06)
[2018-06-10] MEDS ORDERED: ATROPINE SULFATE 0.1 MG/ML 10ML SYRINGE IV PRN (14:06)
[2018-06-10] MEDS ORDERED: SODIUM CHLORIDE 0.9% 1,000 ML IV SCH (14:15)
--- NOTE | 2018-06-10 14:22 | PTCA ---
PERCUTANEOUSTRANS CORORONARY ANGIOGRAPHY Mr. Hutchins is a 68-year-old male with known history of coronary artery disease who presented last week with a non ST-segment elevation myocardial infarction, was found to have critical stenosis involving the left circumflex. There was a culprit lesion, underwent stenting of that vessel. At the same time, there was significant disease involving the LAD. He was admitted today to undergo elective angioplasty and stenting. The procedures, risks and complication were discussed with the patient, who is in full understanding and agreement. PROCEDURE: Patient was brought to the electroplating laborer in a fasting semi-sedated state after receiving fentanyl and Benadryl and achieving moderate conscious sedated state. Using Xylocaine anesthesia and Seldinger technique, a 6-Slovak sheath was introduced in the right radial artery. A 6-Slovak EBU 3.75 guiding catheter introduced in the system. After cannulated the left main, a 0.014 balanced medium weight J-wire was advanced across the lesion, positioned distally, then a 2.5 x 12 mm Trek balloon was advanced and one inflation at 10 atmospheres was done. Following that, the balloon was removed and a 2.5 x 18 mm Xience Roxane stent was deployed and post-dilated at 16 atmospheres. After the last inflation, after appropriate wait, the balloon and the guidewire were withdrawn back in the guiding catheter. Images were obtained and repeated. Those images reveal stable successful stenting. At that point, the guiding catheter, the balloon and the guidewire were removed, the sheath was removed. Hemostasis was obtained with deployment of a TR band. There was no immediate complication. Patient is returned to his room in stable condition. Of note, patient received Angiomax per protocol and was continued on Brilinta. He had no chest discomfort. He had EKG changes that resolved at the end the procedure. RESULTS: Successful stenting of the proximal LAD with reduction of stenosis from 70% to 0% in a calcified segment. RECOMMENDATION: Patient be continued on aspirin, Brilinta, beta sun, statin, JATINDER inhibitor. The importance of dual antiplatelet treatment were discussed with the patient and his family who are in full understanding and agreement. Duration of procedure 35 minutes. MMODL / IJN: [id number] /
[2018-06-10 17:16] VITALS: RESP 18
[2018-06-10] MEDS ORDERED: ATORVASTATIN 80 MG TAB PO SCH (21:00)
[2018-06-10] MEDS: LISINOPRIL 5 MG TAB PO SCH (23:09)
[2018-06-10] MEDS: METOPROLOL TARTRATE 25 MG TAB PO SCH (23:09)
[2018-06-10] MEDS: TICAGRELOR 90 MG TAB PO SCH (23:14)
[2018-06-11 06:36] VITALS: TEMP 97.2
[2018-06-11 07:41] LABS: Anion Gap 7 mmol/L; Blood Urea Nitrogen 14 mg/dL (9-20); Calcium 9.3 mg/dL (8.4-10.2); Carbon Dioxide 21 mmol/L (22-30); Chloride 106 mmol/L (98-107); Glucose 103 mg/dL (74-99); Potassium 4.5 mmol/L (3.5-5.1); Sodium 134 mmol/L (137-145)
[2018-06-11] MEDS: LISINOPRIL 5 MG TAB PO SCH (08:28)
[2018-06-11] MEDS: METOPROLOL TARTRATE 25 MG TAB PO SCH (08:28)
[2018-06-11] MEDS: TICAGRELOR 90 MG TAB PO SCH (08:28)
[2018-06-11 08:30] VITALS: BP 142/63; PULSE 64
--- NOTE | 2018-06-11 08:57 | PN ---
PROGRESS NOTE Mr. Hutchins is a 68-year-old male who recently presented with non ST-segment elevation myocardial infarction, underwent stenting of his left circumflex and was admitted electively to undergo stenting of the LAD. He underwent procedure yesterday. He is doing well this morning. He is denying any chest pain. His breathing has been stable. He denies any dizziness, palpitation. He denies any nausea. He continued to be on aspirin 81 mg daily, Brilinta 90 mg twice a day, Lipitor 80 mg daily, lisinopril 5 mg twice a day, metoprolol tartrate 25 mg twice a day. PHYSICAL EXAMINATION: Blood pressure 111/70 with a heart rate in the 60s. LUNGS: Clear. HEART: Regular rate and rhythm, S1, S2. No S3. No rub. ABDOMEN: Soft nontender. EXTREMITIES: No edema, right radial pulse intact. EKG revealed sinus mechanism with T-wave inversion anteriorly with no acute changes. IMPRESSION: 1. Status post stenting of the LAD. 2. Status post non-STEMI stenting of the left circumflex last week. 3. Hypertension. 4. Hyperlipidemia. RECOMMENDATION: Patient should be able to be discharged home today and follow as an outpatient with Dr. Talon Fajardo. TAHIRA / MOLLY: [id number] /
[2018-06-11] MEDS ORDERED: ASPIRIN 81 MG PO SCH (09:00)
== END 2018-06-11 08:30 | disposition home or self-care (01) ==
LOC: CATHCVL 12:17 → 3SCARD 13:54 → CATHCVL 06-11 08:30
PROVIDERS: ATTEND Internal Medicine Interventional Cardiology
DX: I25.10 Atherosclerotic heart disease of native coronary artery without angina pectoris (principal); I10 Essential (primary) hypertension; E78.5 Hyperlipidemia, unspecified; I25.2 Old myocardial infarction; Z95.5 Presence of coronary angioplasty implant and graft; Z79.02 Long term (current) use of antithrombotics/antiplatelets; Z79.82 Long term (current) use of aspirin; Z79.899 Other long term (current) drug therapy
CPT/HCPCS: 85347; 80048; 85025; C9600; C1769 ×2; C1887; C1894; C1725; C1874; J2001; J3010; J0583; Q9967

== ENCOUNTER → 2018-09-08 | Outpatient (CLI) | payer MEDICARE | END | disposition home or self-care (01) | LOC: LABWHC1 07:31 | PROVIDERS: ATTEND Internal Medicine Cardiovascular Disease | DX: I25.10 Atherosclerotic heart disease of native coronary artery without angina pectoris (principal) | CPT/HCPCS: 36415; 83704 ==

== ENCOUNTER → 2018-12-10 | Outpatient (CLI) | payer MEDICARE ==
[2018-12-10 08:06] LABS: HCT 49.6 % (39.0-53.0); HGB 16.2 gm/dL (13.0-17.5); MCHC 32.6 g/dL (31.0-37.0); MCV 95.2 fL (80.0-100.0); Platelet Count 241 k/uL (150-450); RBC 5.21 m/uL (4.30-5.90); RDW 15.9 % (11.5-15.5); WBC 11.1 k/uL (3.8-10.6)
[2018-12-10 08:17] LABS: African American GFR (CKD) >90 (>60 ml/min/1.73 sqM); Anion Gap 9 mmol/L; Blood Urea Nitrogen 24 mg/dL (9-20); Carbon Dioxide 25 mmol/L (22-30); Chloride 101 mmol/L (98-107); Potassium 5.1 mmol/L (3.5-5.1); Sodium 135 mmol/L (137-145)
== END | disposition home or self-care (01) ==
LOC: LABPAT 07:09
PROVIDERS: ATTEND Internal Medicine Cardiovascular Disease
DX: Z01.812 Encounter for preprocedural laboratory examination (principal); I25.10 Atherosclerotic heart disease of native coronary artery without angina pectoris
CPT/HCPCS: 36415; 80051; 82565; 84520; 85027

== ENCOUNTER 2018-12-16 10:48 | Day surgery (SDC) | payer MEDICARE ==
[2018-12-15 10:38] VITALS: BMI 27.8
[~2018-12-16 10:48] MED LIST changes: -ALPRAZolam 0.5 MG TAB PO PRN; +ASPIRIN 325 MG TAB PO ONE; -ASPIRIN 325 MG TAB PO STA; -ATORVASTATIN 80 MG TAB PO ONE; -NITROGLYCERIN SL TABS 0.4 MG TAB SUBLINGUAL PRN
[2018-12-16] MEDS ORDERED: HEPARIN SODIUM 1,000 UN/ML (10ML VL) IV ONE (11:37)
[2018-12-16] MEDS ORDERED: LIDOCAINE 1% INJ 10MG/ML (20 ML MDV) ONE (12:09)
[2018-12-16] MEDS ORDERED: fentaNYL (PF) 50 MCG/ML 2 ML AMP ONE (12:21)
[2018-12-16] MEDS ORDERED: fentaNYL (PF) 50 MCG/ML 2 ML AMP IVP ONE (12:26)
[2018-12-16] MEDS ORDERED: LIDOCAINE 1% INJ 10MG/ML (20 ML MDV) SQ ONE (12:26)
[2018-12-16] MEDS ORDERED: MIDAZOLAM (PF) 2 MG/2 ML VIAL IVP ONE (12:26)
[2018-12-16] MEDS ORDERED: NITROGLYCERIN SL TABS 0.4 MG TAB SUBLINGUAL ONE ×4 (12:57→13:37)
[2018-12-16] MEDS ORDERED: NITROGLYCERIN 1000MCG/10ML SYRINGE INTRACORON ONE (13:42)
[2018-12-16] MEDS ORDERED: IOPAMIDOL-370 125ML BTL INJ ONE (13:44)
[2018-12-16] MEDS ORDERED: ADENOSINE 90 MG in SODIUM CHLORIDE 0.9% 60 ML IVP ONE (13:47)
[2018-12-16] MEDS ORDERED: MAG HYDROX/AL HYDROX/SIMETH 30 ML CUP PO PRN (13:55)
[2018-12-16] MEDS ORDERED: ZOLPIDEM 5 MG TAB PO PRN (13:55)
[2018-12-16] MEDS ORDERED: ATROPINE SULFATE 0.1 MG/ML 10ML SYRINGE IV PRN (13:55)
[2018-12-16] MEDS ORDERED: NITROGLYCERIN SL TABS 0.4 MG TAB SUBLINGUAL PRN (13:55)
[2018-12-16] MEDS ORDERED: RX INFO: IV CONTRAST WAS GIVEN 1 EACH MISC MISCELLANE PRN (13:55)
[2018-12-16] MEDS ORDERED: SODIUM CHLORIDE 0.9% 1,000 ML IV SCH (14:00)
[2018-12-16] MEDS ORDERED: amLODIPine 5 MG TAB PO STA (15:20)
[2018-12-16] MEDS ORDERED: amLODIPine 5 MG TAB ONE (15:23)
--- NOTE | 2018-12-16 16:00 | CC ---
CARDIAC CATHETERIZATION REPORT Mr. Hutchins is status post stent to the LAD and circumflex coronary artery. Patient also has a prior history of stent to the diagonal branch. The patient has been having some exertional angina. Stress test showed inferolateral ischemia. In view of that, the patient was recommended to have a cardiac catheterization for definitive diagnosis. PROCEDURE DESCRIPTION: The right groin was prepped and draped in the usual manner. Initially it was difficult to access the femoral artery with a micropuncture needle, as the wire was going down into the branch. Subsequently right femoral artery was entered using a regular needle and #6-Azerbaijani sheath was placed in and selective coronary angiography was then performed in multiple projections. The patient tolerated the procedure well. SELECTIVE CORONARY ANGIOGRAPHY: Left main coronary artery is normal and patent. LAD is a good-caliber blood vessel and is patent at the site of the prior stent placement. There is a small-sized diagonal branch which has 60% to 70% stenosis. Circumflex coronary artery is dominant in distribution. It is patent at the site of the prior stent placement. The proximal circumflex coronary artery has about 50% stenosis. The circumflex coronary artery is dominant in distribution. The right coronary artery is small and nondominant. FINAL IMPRESSION: There is about 50% stenosis in the proximal circumflex coronary artery prior to the prior stent placement. We will do FFR to assess the physiological significance. LAD is patent at the prior stent placement. The diagonal branch has diffuse stenosis of about 60% to 70% in its mid portion distal to the stent. RECOMMENDATIONS: Will do FFR of the proximal circumflex coronary artery, and if the FFR is positive, then he may need angioplasty of the proximal circumflex coronary artery. MMODL / IJN: [id number] /
--- NOTE | 2018-12-16 16:27 | PCN ---
PROCEDURE NOTE FRACTION FLOW RESERVE MEASUREMENT: Mr. Hutchins is a 68-year-old male with known history of coronary artery disease who presented with symptoms of chest discomfort and abnormal myocardial perfusion imaging. He underwent cardiac catheterization by Dr. Fajardo and was found to have a borderline lesion in the proximal left circumflex. In view of that, recommendation was made regarding fractional flow reserve measurement. The procedures, its risks and complications were discussed with the patient, who was in full understanding and agreement. PROCEDURE DESCRIPTION: A 6-Syriac FR4 guiding catheter was introduced into the system. After cannulating the left main, a Doppler FloWire [place] was advanced, positioned in the left circumflex. Subsequently an IFR and an FFR were measured. Subsequently catheter and sheath were removed. Hemostasis was obtained with compression of the right groin. There were no immediate complications. Patient was returned to his room in stable condition. Of note, the patient received a total of 5000 units of intravenous heparin. There was no immediate complication. FINDINGS: Non-hemodynamically significant fractional flow reserve of 81%. RECOMMENDATION: Patient will be continued on medical therapy. Those findings and recommendations were discussed with the patient and his family, who are in full understanding and agreement. Duration of procedure was minutes. MMODL / IJN: [id number] /
[2018-12-16] MEDS ORDERED: hydrALAZINE HCL 20 MG/ML 1 ML VIAL ONE (17:09)
[2018-12-16] MEDS ORDERED: hydrALAZINE HCL 20 MG/ML 1 ML VIAL IVP STA (17:13)
[2018-12-16] MEDS ORDERED: FUROSEMIDE 10 MG/ML 4 ML VIAL ONE (18:02)
[2018-12-16] MEDS ORDERED: ENALAPRILAT 1.25 MG/ML 1 ML VIAL ONE (18:03)
[2018-12-16] MEDS ORDERED: ENALAPRILAT 1.25 MG/ML 1 ML VIAL IVP STA (18:05)
[2018-12-16] MEDS ORDERED: FUROSEMIDE 10 MG/ML 2 ML VIAL IV STA (18:05)
[2018-12-16] MEDS ORDERED: LIDOCAINE URO-JET JELLY 2% 5 ML KIT ONE (18:09)
[2018-12-16] MEDS ORDERED: HYDROmorphone 1 MG/ML 1 ML SYRINGE ONE (18:09)
[2018-12-16] MEDS ORDERED: LISINOPRIL 5 MG TAB PO SCH (21:00)
[2018-12-16] MEDS ORDERED: ATORVASTATIN 80 MG TAB PO SCH (21:00)
[2018-12-16] MEDS ORDERED: METOPROLOL TARTRATE 25 MG TAB PO SCH (21:00)
[2018-12-17 02:22] VITALS: BP 144/67; PULSE 60; RESP 17; TEMP 98
[2018-12-17] MEDS ORDERED: CLOPIDOGREL 75 MG TAB PO SCH (09:00)
[2018-12-17] MEDS ORDERED: ASPIRIN 81 MG PO SCH (09:00)
== END 2018-12-17 02:00 | disposition home or self-care (01) ==
LOC: CATHCVL 10:48 → 1SOBS 13:45 → CATHCVL 12-17 02:00
PROVIDERS: ATTEND Internal Medicine Cardiovascular Disease
DX: I25.118 Atherosclerotic heart disease of native coronary artery with other forms of angina pectoris (principal); Z95.5 Presence of coronary angioplasty implant and graft; I25.2 Old myocardial infarction; I10 Essential (primary) hypertension; E78.5 Hyperlipidemia, unspecified; I73.9 Peripheral vascular disease, unspecified; Z72.0 Tobacco use; I77.9 Disorder of arteries and arterioles, unspecified; I49.3 Ventricular premature depolarization; Z79.82 Long term (current) use of aspirin; Z79.899 Other long term (current) drug therapy; Z79.02 Long term (current) use of antithrombotics/antiplatelets
CPT/HCPCS: 93571; 93454; 85347; C1887; C1894; C1769 ×2; J0360; J1940; J2001; J3010; J1644; J1170; J0153; Q9967; J2250

== ENCOUNTER → 2019-12-01 | Outpatient (CLI) | payer MEDICARE ==
[2019-12-01 16:21] LABS: African American GFR (CKD) 102.1 (60.0-200.0); Albumin 4.4 g/dL (3.80-4.90); Albumin/Globulin Ratio 1.63 (1.60-3.17); Anion Gap 7.4 mmol/L (4.00-12.00); BUN/Creat Ratio 14.44 Ratio (12.00-20.00); Carbon Dioxide 26.6 mmol/L (21.6-31.8); Chol/HDL Ratio 3.21; Globulin 2.7 g/dL (1.6-3.3); LDL Cholesterol,Calculated 75.8 mg/dL (0.0-131.0); Non-African American GFR(CKD) 88.1 (60.0-200.0); Potassium 4.7 mmol/L (3.5-5.5); Total Bilirubin 0.8 mg/dL (0.2-1.2); Total Protein 7.1 g/dL (6.2-8.2); VLDL Calculation 17.2 mg/dL (5.00-40.00)
== END | disposition home or self-care (01) ==
LOC: LABWHC1 08:05
PROVIDERS: ATTEND Internal Medicine Interventional Cardiology
DX: E78.2 Mixed hyperlipidemia (principal)
CPT/HCPCS: 36415; 80053; 80061

== ENCOUNTER 2021-01-16 07:39 | Outpatient (CLI) | payer MEDICARE | END 2021-01-16 07:46 | disposition home or self-care (01) | LOC: LABWHC1 07:39 | PROVIDERS: ATTEND Internal Medicine Interventional Cardiology | DX: Z53.9 Procedure and treatment not carried out, unspecified reason (principal) ==

== ENCOUNTER 2021-03-05 10:46 | Inpatient (IN) | payer MEDICARE ==
[2021-03-05 11:48] LABS: Glucose,Whole Blood 110 mg/dL (75-99)
[2021-03-05] MEDS ORDERED: SODIUM CHLORIDE 0.9% 500 ML 500 ML IV STA (11:50)
--- NOTE | 2021-03-05 12:04 | ED ---
General Adult HPI - General Chief complaint: Neuro Symptoms/Deficit Stated complaint: Slurred speech Time Seen by Provider: 03/05/21 11:45 Source: patient, RN notes reviewed, old records reviewed Mode of arrival: ambulatory Limitations: no limitations - History of Present Illness Initial comments: This is a 71-year-old male who presents to the emergency department for slurred speech. Patient also states he has a hypertensive history. Patient comes in stating he has no numbness no weakness he states the slurred speech started on Friday but he thought it would go away and thought maybe it was due to a cold so he just stayed home. Patient states they wanted to go home we talked his daughter's doctor wanted to come in immediately. Patient denies headache patient denies numbness weakness. Patient denies any visual disturbance patient denies any noted facial droop. Patient denies any other complaints at this time patient denies chest pain palpitations difficulty breathing shortest breath per patient denies any recent fever chills or cough per patient denies abdominal pain patient denies nausea vomiting diarrhea. - Related Data Home Medications Medication Instructions Recorded Confirmed Clopidogrel [Plavix] 75 mg PO DAILY 12/15/18 12/16/18 Previous Rx's Medication Instructions Recorded Aspirin 81 mg PO DAILY #30 chew 06/05/18 Atorvastatin [Lipitor] 80 mg PO HS #30 tab 06/05/18 Metoprolol Tartrate [Lopressor] 25 mg PO BID #60 tab 06/05/18 lisinopriL [Zestril] 5 mg PO BID #60 tab 06/05/18 Allergies Allergy/AdvReac Type Severity Reaction Status Date / Time No Known Allergies Allergy Verified 03/05/21 11:28 Review of Systems ROS Statement: Those systems with pertinent positive or pertinent negative responses have been documented in the HPI. ROS Other: All systems not noted in ROS Statement are negative. Past Medical History Past Medical History: Coronary Artery Disease (CAD), Chest Pain / Angina, GERD/R eflux, Hyperlipidemia, Hypertension, Myocardial Infarction (AR), Vascular Disorder Additional Past Medical History / Comment(s): seizures "many years ago'", occ irregular heartbeat, Last Myocardial Infarction Date:: 08/09/12 History of Any Multi-Drug Resistant Organisms: None Reported Past Surgical History: Heart Catheterization With Stent, Orthopedic Surgery Additional Past Surgical History / Comment(s): PTCA with Stent, cervical fusion, aortagrams, atherectomy left leg, 06/04/2018- 3 cardiac stents total Past Anesthesia/Blood Transfusion Reactions: No Reported Reaction Date of Last Stent Placement:: 06/04/18 Past Psychological History: No Psychological Hx Reported Smoking Status: Current every day smoker Past Alcohol Use History: Daily Past Drug Use History: None Reported - Past Family History Mother Family Medical History: Cancer Additional Family Medical History / Comment(s): Mother of cervical cancer. She was 80 yrs old. General Exam - General Exam Comments Initial Comments: GENERAL: Patient is well-developed and well-nourished. Patient is nontoxic and well- hydrated and is in no acute distress. ENT: Neck is soft and supple. No significant lymphadenopathy is noted. Oropharynx is clear. Moist mucous membranes. Neck has full range of motion without eliciting any pain. EYES: The sclera were anicteric and conjunctiva were pink and moist. Extraocular movements were intact and pupils were equal round and reactive to light. Eyelids were unremarkable. PULMONARY: Unlabored respirations. Good breath sounds bilaterally. No audible rales r honchi or wheezing was noted. CARDIOVASCULAR: There is a regular rate and rhythm without any murmurs gallops or rubs. ABDOMEN: Soft and nontender with normal bowel sounds. SKIN: Skin is clear with no lesions or rashes and otherwise unremarkable. NEUROLOGIC: Patient is alert and oriented x3. Cranial nerves II through XII are grossly intact. Motor and sensory are also intact. Patient has slurred speech. Patient's smile is symmetric. Patient finger to nose testing bilaterally was normal. MUSCULOSKELETAL: Normal extremities with adequate strength and full range of motion. No lower ex tremity swelling or edema. No calf tenderness. LYMPHATICS: No significant lymphadenopathy is noted PSYCHIATRIC: Normal psychiatric evaluation. Limitations: no limitations Course Vital Signs 03/05/21 03/05/21 03/05/21 11:25 12:04 13:28 Temperature 99.8 F H 98.5 F Pulse Rate 57 L 54 L 60 Respiratory 20 18 16 Rate Blood Pressure 189/70 182/66 168/89 O2 Sat by Pulse 98 97 97 Oximetry Medical Decision Making - Medical Decision Making EKG shows sinus bradycardia 59 bpm MN interval 190 QRS is 100 a QT interval is 440 QTC is 453. Patient's EKG shows T-wave inversions in precordial leads V4 through the V6 CT of the brain shows no acute abnormality. CT angiogram of the head neck shows stenosis between 7075% on the right and 75- 80 on the left. I spoke with Dr. Ellington he agreed to admit the patient admitted the patient wrote admitting orders. - Lab Data Result diagrams: 03/05/21 11:37 03/05/21 12:47 Lab Results 03/05/21 03/05/21 03/05/21 Range/Units 11:37 11:37 11:37 WBC 9.9 (3.8-10.6) k/uL RBC 5.61 (4.30-5.90) m/uL Hgb 17.6 H (13.0-17.5) gm/dL Hct 53.8 H (39.0-53.0) % MCV 95.9 (80.0-100.0) fL MCH 31.3 (25.0-35.0) pg MCHC 32.7 (31.0-37.0) g/dL RDW 13.7 (11.5-15.5) % Plt Count 243 (150-450) k/uL MPV 9.0 Neutrophils % 65 % Lymphocytes % 23 % Monocytes % 7 % Eosinophils % 3 % Basophils % 1 % Neutrophils # 6.4 (1.3-7.7) k/uL Lymphocytes # 2.3 (1.0-4.8) k/uL Monocytes # 0.7 (0-1.0) k/uL Eosinophils # 0.3 (0-0.7) k/uL Basophils # 0.1 (0-0.2) k/uL PT 10.3 (9.0-12.0) sec INR 1.0 (<1.2) APTT 24.1 (22.0-30.0) sec Sodium (137-145) mmol/L Potassium (3.5-5.1) mmol/L Chloride (98-107) mmol/L Carbon Dioxide (22-30) mmol/L Anion Gap mmol/L BUN (9-20) mg/dL Creatinine (0.66-1.25) mg/dL Est GFR (CKD-EPI)AfAm (>60 ml/min/1.73 sqM) Est GFR (CKD-EPI)NonAf (>60 ml/min/1.73 sqM) Glucose (74-99) mg/dL POC Glucose (mg/dL) (75-99) mg/dL POC Glu Comb Capper ID Calcium (8.4-10.2) mg/dL Total Bilirubin (0.2-1.3) mg/dL AST (17-59) U/L ALT (4-49) U/L Alkaline Phosphatase (38-126) U/L Troponin I <0.012 (0.000-0.034) ng/mL Total Protein (6.3-8.2) g/dL Albumin (3.5-5.0) g/dL 03/05/21 03/05/21 Range/Units 11:47 12:47 WBC (3.8-10.6) k/uL RBC (4.30-5.90) m/uL Hgb (13.0-17.5) gm/dL Hct (39.0-53.0) % MCV (80.0-100.0) fL MCH (25.0-35.0) pg MCHC (31.0-37.0) g/dL RDW (11.5-15.5) % Plt Count (150-450) k/uL MPV Neutrophils % % Lymphocytes % % Monocytes % % Eosinophils % % Basophils % % Neutrophils # (1.3-7.7) k/uL Lymphocytes # (1.0-4.8) k/uL Monocytes # (0-1.0) k/uL Eosinophils # (0-0.7) k/uL Basophils # (0-0.2) k/uL PT (9.0-12.0) sec INR (<1.2) APTT (22.0-30.0) sec Sodium 135 L (137-145) mmol/L Potassium 4.7 (3.5-5.1) mmol/L Chloride 99 (98-107) mmol/L Carbon Dioxide 27 (22-30) mmol/L Anion Gap 9 mmol/L BUN 13 (9-20) mg/dL Creatinine 0.80 (0.66-1.25) mg/dL Est GFR (CKD-EPI)AfAm >90 (>60 ml/min/1.73 sqM) Est GFR (CKD-EPI)NonAf >90 (>60 ml/min/1.73 sqM) Glucose 114 H (74-99) mg/dL POC Glucose (mg/dL) 110 H (75-99) mg/dL POC Glu Comb Capper ID Bola Burkett Calcium 10.1 (8.4-10.2) mg/dL Total Bilirubin 1.0 (0.2-1.3) mg/dL AST 34 (17-59) U/L ALT 45 (4-49) U/L Alkaline Phosphatase 110 (38-126) U/L Troponin I (0.000-0.034) ng/mL Total Protein 8.0 (6.3-8.2) g/dL Albumin 4.4 (3.5-5.0) g/dL Disposition Clinical Impression: Cerebrovascular accident (CVA) Disposition: ADMITTED IP TO THIS HOSP Referrals: David Ellington MD [Primary Care Provider] - 1-2 days Time of Disposition: 13:46
[2021-03-05 12:06] LABS: Basophils # (A) 0.1 k/uL (0-0.2); Basophils % (A) 1 %; Eosinophils # (A) 0.3 k/uL (0-0.7); Eosinophils % (A) 3 %; HCT 53.8 % (39.0-53.0); HGB 17.6 gm/dL (13.0-17.5); Lymphocytes # (A) 2.3 k/uL (1.0-4.8); Lymphocytes % (A) 23 %; MCH 31.3 pg (25.0-35.0); MCHC 32.7 g/dL (31.0-37.0); MCV 95.9 fL (80.0-100.0); Monocytes # (A) 0.7 k/uL (0-1.0); Monocytes % (A) 7 %; Neutrophils # (A) 6.4 k/uL (1.3-7.7); Neutrophils % (A) 65 %; Platelet Count 243 k/uL (150-450); RBC 5.61 m/uL (4.30-5.90); RDW 13.7 % (11.5-15.5); WBC 9.9 k/uL (3.8-10.6)
--- NOTE | 2021-03-05 12:32 | XR ---
EXAMINATION TYPE: XR chest 2V DATE OF EXAM: 03/05/2021 COMPARISON: 06/04/2019 1938, altered mental status HISTORY: Altered mental status TECHNIQUE: Frontal and lateral views of the chest are obtained. FINDINGS: Right apical scarring is unchanged. The cardiac silhouette size is within normal limits. The osseous structures are intact. IMPRESSION: No acute cardiopulmonary process.
--- NOTE | 2021-03-05 12:34 | CT ---
EXAMINATION TYPE: CT brain wo con for TPA DATE OF EXAM: 03/05/2021 COMPARISON: None HISTORY: Slurred speech x [address] DLP: 1144.[address] of the brain was performed. The ventricles, basal cisterns and sulci overlying the cerebral convexities demonstrate mild enlargem ent. There is no evidence for intracranial hemorrhage or sulcal effacement. There is decreased attenuation about the periventricular white matter and deep white matter of both c erebral hemispheres, compatible with chronic small vessel ischemia. Differential diagnosis does inclu de demyelination. No mass effects are seen.No midline shift. Osseous calvarium is intact. If symptoms persist consider MRI. IMPRESSION: 1. Age related atrophic and chronic small vessel ischemic change without acute intracranial process s een at this time.
[2021-03-05 12:54] LABS: Partial Thromboplastin Time 24.1 sec (22.0-30.0); Prothrombin Time 10.3 sec (9.0-12.0)
--- NOTE | 2021-03-05 12:58 | CT ---
EXAMINATION TYPE: CT angio head neck DATE OF EXAM: 03/05/2021 COMPARISON: None HISTORY: Slurred speech x [address] DLP: 553.2 mGycm CONTRAST: Performed with IV Contrast, patient injected with 65 mL of Isovue 370. Combination Contrast CTA cervical carotids and [place] CTA cervical carotids with 3-D recons truction Contrast CTA of the cervical carotids was performed 3-D reconstruction imaging obtained at a separate workstation. Right carotid system: Mild plaque is seen of the right common carotid artery. There is moderate plaq ue also noted at the carotid bulb and proximal ICA. Estimated diameter reduction between 70 and 75%. ECA is patent. Right vertebral artery appears unremarkable. Left carotid system: Mild plaque is seen of the left common carotid artery. There is moderate calcif ied plaque also noted at the carotid bulb and proximal ICA. Estimated diameter reduction between 75 and 80%. ECA is patent. Left vertebral artery appears unremarkable. IMPRESSION: 1. Estimated diameter reduction right proximal ICA at between 70 and 75%. 2. Estimated diameter reduction proximal left ICA at between 75 and 80%. CTA ka[place]ab of [place] with 3-D reconstruction Contrast CTA of the kaibab of [place] was performed 3-D reconstruction imaging obtained at a separate workstation. Vertebrobasilar system as well as intracranial portions of the internal carotid arteries and their ma crispin tributaries are patent. I do not see evidence for sizable aneurysm or vascular malformation. Pl ease note MRI provides greater sensitivity and specificity. Visualized brain appears grossly unremar kable. IMPRESSION: 1. No siginificant abnormality. NASCET criteria was used in interpretation of this exam?
[2021-03-05 13:13] LABS: ALT 45 U/L (4-49); AST 34 U/L (17-59); African American GFR (CKD) >90 (>60 ml/min/1.73 sqM); Albumin 4.4 g/dL (3.5-5.0); Alkaline Phosphatase 110 U/L (38-126); Anion Gap 9 mmol/L; Blood Urea Nitrogen 13 mg/dL (9-20); Calcium 10.1 mg/dL (8.4-10.2); Carbon Dioxide 27 mmol/L (22-30); Chloride 99 mmol/L (98-107); Glucose 114 mg/dL (74-99); Non-African American GFR(CKD) >90 (>60 ml/min/1.73 sqM); Potassium 4.7 mmol/L (3.5-5.1); Sodium 135 mmol/L (137-145)
[2021-03-05] MEDS ORDERED: ASPIRIN 325 MG TAB PO STA (13:47)
[2021-03-05] MEDS: lisinopriL 5 MG TAB PO SCH (21:44)
[2021-03-05] MEDS: METOPROLOL TARTRATE 25 MG TAB PO SCH (21:44)
--- NOTE | 2021-03-05 22:22 | MR ---
MRI OF THE BRAIN WO History: Acute stroke and dysarthria. COMPARISON: Same-day CT. TECHNIQUE: Multiplanar multisequence MR imaging of the brain was obtained without the use of IV cont rast. FINDINGS: There is small focal restricted diffusion within the left posterior lentiform nucleus.No acute intrac ranial hemorrhage or abnormal extra-axial fluid collection are noted.There is no midline shift or mas s effect. There is moderate white matter T2 FLAIR hyperintensities, in keeping with chronic microvasc ular ischemic changes. There is mild parenchymal volume loss. Visualized vascular flow voids are unre markable. Visualized paranasal sinuses and mastoid air cells are patent and aerated. IMPRESSION: Acute left lacunar infarct. Chronic microvascular ischemic changes. Findings were reported to Edwin Orozco by me at time of dictation.
--- NOTE | 2021-03-05 22:34 | P.CNNES ---
History of Present Illness Consult date: 03/05/21 Requesting physician: Mitul Patterson Reason for Consult: CVA History of Present Illness: Patient is a 71-year-old right-handed male came to the hospital this morning at 10:46 AM for 2 day history of dysarthria. Patient states that he woke up on Friday morning, 03/02/2021 with slurred speech. He had no other symptoms therefore ignored it. He felt he will get better. Patient's daughter came over today, and noticed slurred speech, and told him to go to ER. Patient states his speech is slightly improved, but still no other focal symptoms. No problem with the vision, or facial droop. Vital signs on arrival blood pressure 189/70, pulse rate 57, temperature 99.8. Chest x-ray showed no acute cardiopulmonary process. CT head showed age-related atrophic and chronic small vessel ischemic changes without acute intracranial process seen at this time. CTA of head is normal. CTA of the neck shows right ICA stenosis between 70 and 75%, whereas left ICA stenosis between 75 and 80%. EKG shows sinus bradycardia. Patient's blood test shows normal WBC hemoglobin 17.6, platelets are 243. PT/PTT normal. Sodium 135 potassium 4.7, normal renal function. Hepatic panel normal, troponin negative, coronavirus PCR negative. Patient's home medications does include aspirin 81 mg, Lipitor 80 mg, metoprolol 25 mg twice a day and lisinopril 5 mg twice a day. Patient has history of hypertension for 15 years, denies diabetes. He has smoked 1 pack per day for last 30 years. Denies any marijuana, does not drink a lcohol. Review of Systems Only slurred speech otherwise completely unremarkable. All other 14 point of review systems reviewed and unremarkable. Past Medical History Past Medical History: Coronary Artery Disease (CAD), Chest Pain / Angina, GERD/Reflux, Hyperlipidemia, Hypertension, Myocardial Infarction ([place]), Vascular Disorder Additional Past Medical History / Comment(s): seizures "many years ago'", occ irregular heartbeat, Last Myocardial Infarction Date:: 08/09/12 History of Any Multi-Drug Resistant Organisms: None Reported Past Surgical History: Heart Catheterization With Stent, Orthopedic Surgery Additional Past Surgical History / Comment(s): PTCA with Stent, cervical fusion, aortagrams, atherectomy left leg, 06/04/2018- 3 cardiac stents total Past Anesthesia/Blood Transfusion Reactions: No Reported Reaction Date of Last Stent Placement:: 06/04/18 Past Psychological History: No Psychological Hx Reported Smoking Status: Current every day smoker Past Alcohol Use History: Daily Past Drug Use History: None Reported - Past Family History Mother Family Medical History: Cancer Additional Family Medical History / Comment(s): Mother of cervical cancer. She was 80 yrs old. Medications and Allergies Home Medications Medication Instructions Recorded Confirmed Type Metoprolol Tartrate [Lopressor] 25 mg PO BID #60 tab 06/05/18 03/05/21 Rx lisinopriL [Zestril] 5 mg PO BID #60 tab 06/05/18 03/05/21 Rx Aspirin 81 mg PO HS 03/05/21 03/05/21 History Atorvastatin [Lipitor] 80 mg PO DAILY 03/05/21 03/05/21 History Allergies Allergy/AdvReac Type Severity Reaction Status Date / Time No Known Allergies Allergy Verified 03/05/21 11:28 Physical Examination - Vital Signs Vital Signs: Vital Signs Temp Pulse Resp BP Pulse Ox 03/05/21 16:40 98.2 F 80 15 158/80 98 03/05/21 13:28 98.5 F 60 16 168/89 97 03/05/21 12:04 54 L 18 182/66 97 03/05/21 11:25 99.8 F H 57 L 20 189/70 98 Intake and Output 03/05/21 03/05/21 03/05/21 06:59 14:59 22:59 Other: Weight 90.718 kg Patient is an elderly male, in no distress. He is alert and awake. Patient is alert awake oriented to time place and person. Speech is moderately dysarthric and language functions are normal. Attention, concentration and fund of knowledge is adequate. On cranial examination, pupils are round and reacting to light, visual rodriguez are full on confrontation, extraocular muscles are intact with no nystagmus. Face is symmetric, tongue protrudes to the midline. Palatal elevation and sensation normal, hearing and shoulder shrug normal, facial sensation normal. Shoulder shrug normal. On muscle strength testing, there is no pronator drift and the strength is normal in arms and legs distally and proximally. Deep tendon reflexes are 2 in the upper limbs, 2 at the knees, 1 at ankles and plantars downgoing bilaterally. Sensory to touch is equal with no neglect on double simultaneous stimulation. Cerebellar function showed no ataxia for [id number] testing. No dysdiadochokinesia. Tone and bulk of muscles normal. Gait not checked. On general examination, there is no carotid bruit or murmur, S1-S2 audible. Abdomen is soft nontender. Chest is clear. Peripheral pulses are present. No edema. Results - Laboratory Findings CBC and BMP: 03/05/21 11:37 03/05/21 12:47 Abnormal Lab Findings: Abnormal Labs 03/05/21 03/05/21 03/05/21 11:37 11:47 12:47 Hgb 17.6 H Hct 53.8 H Sodium 135 L Glucose 114 H POC Glucose (mg/dL) 110 H Assessment and Plan Assessment: * Acute ischemic stroke, manifesting with moderate dysarthria. Current NIH stroke scale 2. * Bilateral ICA stenosis, 70-75% on the right, and 75-80% on the left. * Hypertension * Dyslipidemia * Tobacco use. Plan: * Stat MRI of the brain to evaluate for an acute stroke. * Vascular surgical consultation for bilateral ICA stenosis. * 2-D echo with bubble study * Hemoglobin A1c, fasting lipid panel. * Agree with starting dual antiplatelet medications, with aspirin 81 mg and Plavix 75 mg. * Continue high-dose statins, Lipitor 80 mg daily. * Speech therapy. * DVT prophylaxis. * Telemetry monitoring * Neurology will follow. Thank you for the consult.
[2021-03-06] MEDS: CLOPIDOGREL 75 MG TAB PO SCH (08:36)
[2021-03-06] MEDS: METOPROLOL TARTRATE 25 MG TAB PO SCH ×2 (08:36→19:52)
[2021-03-06] MEDS: lisinopriL 5 MG TAB PO SCH (08:37)
[2021-03-06] MEDS: ATORVASTATIN 80 MG TAB PO SCH (08:37)
[2021-03-06] MEDS ORDERED: ASPIRIN 325 MG TAB PO SCH (09:00)
--- NOTE | 2021-03-06 09:14 | P.HPIM ---
History of Present Illness H&P Date: 03/06/21 HISTORY OF PRESENT ILLNESS This is a 71-year-old male patient of Dr. Ellington and Dr. Jc with past medical history of coronary artery disease, hypertension, hyperlipidemia, peripheral artery disease, COPD, active tobacco use and dependence. Patient states that on Friday morning he woke up and had slurred speech and dry mouth. He denies any drooping of his face and no extremity weakness. Patient waited until Friday and called the office and was instructed to come into the hospital for further evaluation. At the time of this evaluation, patient continues to have slurred speech. He was afebrile, heart rate in the 50s to 80s, initial blood pressure 189/70, pulse ox 90% on room air. Hemoglobin 17.6 otherwise unremarkable CBC. Hemoglobin A1c 6.1. Troponin negative 1. Liver function tests normal. Lipase 61. Coronal virus PCR not detected. BUN 13 and creatinine 0.8. Sodium 135 otherwise electrolytes are within normal limits. Chest x-ray showed no acute cardiopulmonary process. CT angiogram of the head and neck revealed no significant abnormality of the [place]. Estimated reduction right proximal ICA 70-75% and left ICA 75-80%. MRI of the brain revealed acute left lacunar infarct. Chronic microvascular ischemic changes. Patient is seen today in the emergency center waiting for a cardiac stepdown bed. He has been seen by neurology, consult was added for vascular surgery, echocardiogram report is pending, patient started on baby aspirin and Plavix, high-dose statin, PT, OT and speech therapy consults. REVIEW OF SYSTEMS Constitutional: No fever, no chills, no night sweats. No weight change. No weakness, fatigue or lethargy. No daytime sleepiness. EENT: No headache. No blurred vision or double vision, no loss of vision. No loss of Hearing, no ringing in the ears, no dizziness. No nasal drainage or congestion. No epistaxis. No sore throat. Lungs: No shortness of breath, cough, no sputum production. No wheezing. Cardiovascular: No chest pain, no lower extremity edema. No palpitations. No paroxysmal nocturnal dyspnea. No orthopnea. No lightheadedness or dizziness. No syncopal episodes. Abdominal: No abdominal pain. No nausea, vomiting. No diarrhea. No constipation. No bloody or tarry stools. No loss of appetite. Genitourinary: No dysuria, increased frequency, urgency. No urinary retention. Musculoskeletal: No myalgias. No muscle weakness, no gait dysfunction, no frequent falls. No back pain. No neck pain. Integumentary: No wounds, no lesions. No rash or pruritus. No unusual bruising. No change in hair or nails. Neurologic: No aphasia. Reports slurred speech. No facial droop. No change in mentation. No head injury. No headache. No paralysis. No paresthesia. Psychiatric: No depression. No anxiety. No mood swings. Endocrine: No abnormal blood sugars. No weight change. No excessive sweating or thirst. No cold intolerance. MEDICAL HISTORY Coronary artery disease Hypertension Hyperlipidemia Peripheral artery disease COPD SURGICAL HISTORY Cardiac catheterization 12/16/2018 with 50% stenosis of the proximal circumflex, LAD patent at the prior stent placement, diagonal branch diffuse stenosis of 60-70% in the midportion Cardiac PCI 06/10/2018 stent of the proximal LAD Atherectomy left leg SOCIAL HISTORY Patient started smoking around 1982 and is about 1 ppd smoker. He drinks alcohol daily-he likes beer or mixed drinks. He states he probably goes over 14 drinks a week. FAMILY HISTORY Mother at age 80 from cervical cancer. Father in his 70s with history of colostomy. Patient has 2 brothers one is full brother with history of h ypertension hyperlipidemia, COPD and coronary artery disease. Patient has 1 sister with no major medical problems and 2 half-sisters. He has 2 children with no major medical problems. PHYSICAL EXAMINATION Gen: This is a 71-year-old male, resting in the ER stretcher and appears to be comfortable and in no acute distress. Extraocular muscles are intact, no nystagmus. HEENT: Head is atraumatic, normocephalic. Pupils equal, round. Sclerae is anicteric. NECK: Supple. No JVD. No lymphadenopathy. No thyromegaly. LUNGS: Clear to auscultation. No wheezes or rhonchi. No intercostal retractions. HEART: Regular rate and rhythm. No murmur. ABDOMEN: Soft. Bowel sounds are present. No masses. No tenderness. EXTREMITIES: No pedal edema. No calf tenderness. NEUROLOGICAL: Patient is awake, alert and oriented x3. Cranial nerves 2 through 12 are grossly intact. No pronator drift. Strength is normal in both upper and both lower extremities. Deep tendon reflexes intact. Finger to nose test normal. ASSESSMENT AND PLAN 1. Acute ischemic left lacunar infarct. Neurology consult appreciated. PT, OT, speech therapy. Patient started on aspirin 81 mg and Plavix 75 mg daily, Lipitor 80 mg daily. Obtain echocardiogram, carotid ultrasound, vascular surgery consultation. 2. Bilateral carotid stenosis. Consult with vascular surgery, continue as in #1. 3. History of coronary artery disease with previous stents. Continue aspirin, Lipitor, Plavix, Lopressor 25 mg twice daily. 4. Hypertension. Continue lisinopril 5 mg twice daily, Lopressor 25 mg twice daily. 5. Hyperlipidemia. Continue atorvastatin 80 mg daily. 6. Peripheral vascular disease. Continue aspirin, Lipitor for secondary prevention. 7. COPD, stable without exacerbation. 8. Tobacco use and dependence. Nicotine patch. 9. GI prophylaxis. Protonix. 10. DVT prophylaxis. Heparin subcu. 11. COVID-19 testing negative. Patient has been hospitalized during a pandemic. Patient will be admitted to the hospital for a minimum of 2 night stay. DISCHARGE PLAN To be determined. Most likely home with outpatient services. Impression and plan of care have been directed as dictated by the signing physician. Nazanin Patiño nurse practitioner acting as scribe for signing physician. Past Medical History Past Medical History: Coronary Artery Disease (CAD), Chest Pain / Angina, MAIK D/Reflux, Hyperlipidemia, Hypertension, Myocardial Infarction ([place]), Vascular Disorder Additional Past Medical History / Comment(s): seizures "many years ago'", occ irregular heartbeat, Last Myocardial Infarction Date:: 08/09/12 History of Any Multi-Drug Resistant Organisms: None Reported Past Surgical History: Heart Catheterization With Stent, Orthopedic Surgery Additional Past Surgical History / Comment(s): PTCA with Stent, cervical fusion, aortagrams, atherectomy left leg, 06/04/2018- 3 cardiac stents total Past Anesthesia/Blood Transfusion Reactions: No Reported Reaction Date of Last Stent Placement:: 06/04/18 Past Psychological History: No Psychological Hx Reported Smoking Status: Current every day smoker Past Alcohol Use History: Daily Past Drug Use History: None Reported - Past Family History Mother Family Medical History: Cancer Additional Family Medical History / Comment(s): Mother of cervical cancer. She was 80 yrs old. Medications and Allergies Home Medications Medication Instructions Recorded Confirmed Type Metoprolol Tartrate [Lopressor] 25 mg PO BID #60 tab 06/05/18 03/05/21 Rx lisinopriL [Zestril] 5 mg PO BID #60 tab 06/05/18 03/05/21 Rx Aspirin 81 mg PO HS 03/05/21 03/05/21 History Atorvastatin [Lipitor] 80 mg PO DAILY 03/05/21 03/05/21 History Allergies Allergy/AdvReac Type Severity Reaction Status Date / Time No Known Allergies Allergy Verified 03/05/21 11:28 Physical Exam Vitals: Vital Signs Temp Pulse Resp BP Pulse Ox 03/06/21 07:10 55 L 18 169/77 95 03/06/21 05:10 97.7 F 62 18 146/69 96 03/06/21 03:10 50 L 18 96 03/06/21 01:10 97.3 F L 52 L 18 121/55 97 03/05/21 23:10 50 L 18 98 03/05/21 21:30 97.3 F L 63 18 177/66 96 03/05/21 19:10 18 03/05/21 18:52 68 16 156/75 97 03/05/21 16:40 98.2 F 80 15 158/80 98 03/05/21 13:28 98.5 F 60 16 168/89 97 03/05/21 12:04 54 L 18 182/66 97 03/05/21 11:25 99.8 F H 57 L 20 189/70 98 Results CBC & Chem 7: 03/05/21 11:37 03/05/21 12:47 Labs: Abnormal Lab Results - Last 24 Hours (Table) 03/05/21 03/05/21 03/05/21 Range/Units 11:37 11:37 11:47 Hgb 17.6 H (13.0-17.5) gm/dL Hct 53.8 H (39.0-53.0) % Sodium (137-145) mmol/L Glucose (74-99) mg/dL POC Glucose (mg/dL) 110 H (75-99) mg/dL Hemoglobin A1c 6.1 H (4.0-6.0) % 03/05/21 Range/Units 12:47 Hgb (13.0-17.5) gm/dL Hct (39.0-53.0) % Sodium 135 L (137-145) mmol/L Glucose 114 H (74-99) mg/dL POC Glucose (mg/dL) (75-99) mg/dL Hemoglobin A1c (4.0-6.0) %
[2021-03-06] MEDS: NICOTINE 21MG/24HR PATCH TRANSDERM SCH (09:53)
[2021-03-06 11:01] LABS: Chol/HDL Ratio 3.63 Ratio; HDL Cholesterol 36.9 mg/dL (40.00-60.00); LDL Cholesterol,Calculated 78.6 mg/dL (0.0-131.0); Triglycerides 92.5 mg/dL (0.00-149.00); VLDL Calculation 18.5 mg/dL (5.00-40.00)
--- NOTE | 2021-03-06 12:22 | P.GSCN ---
History of Present Illness Consult date: 03/06/21 Reason for Consult: Carotid stenosis Requesting physician: David Ellington History of present illness: This is a 71-year-old male with a past medical history of coronary artery disease, current every day smoker, COPD, GERD, hyperlipidemia, hypertension, [place] and vascular disorder status post intervention in 2012 who presented to the emergency department yesterday with complaints of slurring of his speech that began on Friday. He denies any other focal deficits. He states he had no extremity weakness, visual changes, difficulty with swallowing, or memory loss. As part of his workup he had a CT of the brain that showed age-related atrophic and chronic small vessel ischemic changes without acute intracranial process seen at this time. He also underwent a CT angiogram of the head and neck with findings reported as estimated diameter reduction right proximal ICA at between 70 and 75%. Estimated diameter reduction proximal left ICA at between 75 and 80%. No significant abnormality of the head. He continues to have slurred speech. He continues to deny any new focal deficits. He denies any chest pain, shortness of breath, abdominal pain, nausea, vomiting, fevers or chills. He denies any previous history of CVA. Neurology has started the patient on dual antiplatelet therapy with aspirin and Plavix. Continuing with high-dose statin and Lipitor 80 mg daily. Review of Systems A 14 point review systems was completed and all pertinent positives and negatives as stated in the HPI. Past Medical History Past Medical History: Coronary Artery Disease (CAD), Chest Pain / Angina, GERD/Reflux, Hyperlipidemia, Hypertension, Myocardial Infarction ([place]), Vascular Disorder Additional Past Medical History / Comment(s): seizures "many years ago'", occ irregular heartbeat, Last Myocardial Infarction Date:: 08/09/12 History of Any Multi-Drug Resistant Organisms: None Reported Past Surgical History: Heart Catheterization With Stent, Orthopedic Surgery Additional Past Surgical History / Comment(s): PTCA with Stent, cervical fusion, aortagrams, atherectomy left leg, 06/04/2018- 3 cardiac stents total Past Anesthesia/Blood Transfusion Reactions: No Reported Reaction Date of Last Stent Placement:: 06/04/18 Past Psychological History: No Psychological Hx Reported Smoking Status: Current every day smoker Past Alcohol Use History: Daily Past Drug Use History: None Reported - Past Family History Mother Family Medical History: Cancer Additional Family Medical History / Comment(s): Mother of cervical cancer. She was 80 yrs old. Medications and Allergies Home Medications Medication Instructions Recorded Confirmed Type Metoprolol Tartrate [Lopressor] 25 mg PO BID #60 tab 06/05/18 03/05/21 Rx lisinopriL [Zestril] 5 mg PO BID #60 tab 06/05/18 03/05/21 Rx Aspirin 81 mg PO HS 03/05/21 03/05/21 History Atorvastatin [Lipitor] 80 mg PO DAILY 03/05/21 03/05/21 History Allergies Allergy/AdvReac Type Severity Reaction Status Date / Time No Known Allergies Allergy Verified 03/05/21 11:28 Surgical - Exam Vital Signs Temp Pulse Resp BP Pulse Ox 99.8 F H 57 L 20 189/70 98 03/05/21 11:25 03/05/21 11:25 03/05/21 11:25 03/05/21 11:25 03/05/21 11:25 General appearance: The patient is alert, oriented, appears in no acute dist ress. HET: Head is normocephalic and atraumatic. Pupils are equal and reactive. Neck: Supple without lymphadenopathy. Trachea midline. No audible carotid bruit. Heart: S1 S2. Regular rate and rhythm. Lungs: Diminished bilaterally. Abdomen: Soft, nontender, nondistended.. Extremities: Normal skin color and turgor. No cyanosis, rash, ulceration, clubbing, or edema. Palpable dorsalis pedis and posterior tibialis pulse right lower extremity, nonpalpable lower extremity. Good capillary refill bilaterally. Neurological: Patient with slurred speech. He is able to answer questions appropriately and follow commands. He has facial symmetry, tongue protrudes midline. Upper and lower extremity strength equal bilaterally. Results - Labs 03/05/21 11:37 03/05/21 12:47 Abnormal Lab Results - Last 24 Hours (Table) 03/05/21 03/05/21 03/05/21 Range/Units 11:37 11:37 11:47 Hgb 17.6 H (13.0-17.5) gm/dL Hct 53.8 H (39.0-53.0) % Sodium (137-145) mmol/L Glucose (74-99) mg/dL POC Glucose (mg/dL) 110 H (75-99) mg/dL Hemoglobin A1c 6.1 H (4.0-6.0) % 03/05/21 Range/Units 12:47 Hgb (13.0-17.5) gm/dL Hct (39.0-53.0) % Sodium 135 L (137-145) mmol/L Glucose 114 H (74-99) mg/dL POC Glucose (mg/dL) (75-99) mg/dL Hemoglobin A1c (4.0-6.0) % Diabetes panel 03/05/21 03/05/21 Range/Units 11:37 12:47 Sodium 135 L (137-145) mmol/L Potassium 4.7 (3.5-5.1) mmol/L Chloride 99 (98-107) mmol/L Carbon Dioxide 27 (22-30) mmol/L BUN 13 (9-20) mg/dL Creatinine 0.80 (0.66-1.25) mg/dL Glucose 114 H (74-99) mg/dL Hemoglobin A1c 6.1 H (4.0-6.0) % Calcium 10.1 (8.4-10.2) mg/dL AST 34 (17-59) U/L ALT 45 (4-49) U/L Alkaline Phosphatase 110 (38-126) U/L Total Protein 8.0 (6.3-8.2) g/dL Albumin 4.4 (3.5-5.0) g/dL Calcium panel 03/05/21 Range/Units 12:47 Calcium 10.1 (8.4-10.2) mg/dL Albumin 4.4 (3.5-5.0) g/dL Pituitary panel 03/05/21 Range/Units 12:47 Sodium 135 L (137-145) mmol/L Potassium 4.7 (3.5-5.1) mmol/L Chloride 99 (98-107) mmol/L Carbon Dioxide 27 (22-30) mmol/L BUN 13 (9-20) mg/dL Creatinine 0.80 (0.66-1.25) mg/dL Glucose 114 H (74-99) mg/dL Calcium 10.1 (8.4-10.2) mg/dL Adrenal panel 03/05/21 Range/Units 12:47 Sodium 135 L (137-145) mmol/L Potassium 4.7 (3.5-5.1) mmol/L Chloride 99 (98-107) mmol/L Carbon Dioxide 27 (22-30) mmol/L BUN 13 (9-20) mg/dL Creatinine 0.80 (0.66-1.25) mg/dL Glucose 114 H (74-99) mg/dL Calcium 10.1 (8.4-10.2) mg/dL Total Bilirubin 1.0 (0.2-1.3) mg/dL AST 34 (17-59) U/L ALT 45 (4-49) U/L Alkaline Phosphatase 110 (38-126) U/L Total Protein 8.0 (6.3-8.2) g/dL Albumin 4.4 (3.5-5.0) g/dL - Imaging Comments: See HPI for details Assessment and Plan Assessment: 1. Bilateral internal carotid artery stenosis, right ICA stenosis between 70- 75% and left ICA stenosis between 75 and 80% per report on CTA 2. Acute left lacunar infarct manifesting with dysarthria 3. History of coronary artery disease status post stenting 4. History of peripheral vascular disease status post intervention 5. History of hypertension and hyperlipidemia 6. Chronic every day smoker, 1 pack per day Plan: 1. Agree with dual antiplatelet therapy and high-dose statin 2. CT angiogram head and neck reviewed by Dr. Marino, imaging does not appear to be consistent with degree of stenosis as documented per CTA will order carotid ultrasound for further evaluation 3. Carotid ultrasound ordered 4. Smoking cessation 5. Neurology on consult, appreciate their recommendations 6. Further recommendations forthcoming pending clinical course Thank you for this consultation, and allowing us take part in the plan of care of your patient during his hospital stay. The impression and plan of care has been dictated as directed. I performed a history and examination of this patient, discussed the same with the dictator. I agree with the dictator's note ,documented as a scribe. Any additional findings or plans will be noted.
--- NOTE | 2021-03-06 13:14 | US ---
EXAMINATION TYPE: US carotid duplex BILAT DATE OF EXAM: 03/06/2021 COMPARISON: Ultrasound 06/07/[address] 03/05/2021 CLINICAL HISTORY: 71-year-old male slurred speech, CVA. TECHNIQUE: Carotid duplex ultrasound examination. Indirect Doppler criteria is utilized. FINDINGS: EXAM MEASUREMENTS: RIGHT: Peak Systolic Velocity (PSV) cm/sec ----- Right CCA: 57.3 ----- Right ICA: 101.6 ----- Right ECA: 169.4 ICA/CCA ratio: 1.8 RIGHT: End Diastole cm/sec ----- Right CCA: 10.3 ----- Right ICA: 16.0 ----- Right ECA: 11.4 LEFT: Peak Systolic Velocity (PSV) cm/sec ----- Left CCA: 48.1 ----- Left ICA: 126.7 ----- Left ECA: 0 ICA/CCA ratio: 2.6 LEFT: End Diastole cm/sec ----- Left CCA: 14.5 ----- Left ICA: 0 ----- Left ECA: 0 VERTEBRALS (direction of flow): Right Vertebral: Antegrade Left Vertebral: Not seen Rhythm: Arrhythmia Hydroelectric Mechanic notes: Left ECA occluded. Large amount of plaque seen at the bilateral bifurcations. Inc reased velocity in the right ECA and High ICA/CCA left ratio IMPRESSION: 1. Prominent atherosclerotic change at the bilateral bifurcations. On the left, there is mildly incre ased ICA peak systolic velocity and elevated ICA/CCA ratio that may reflect a moderate (50-69%) proxi mal left ICA stenosis. 2. Occluded left ECA. 3. Unable to adequately visualize the left vertebral artery on the present exam. Criteria for Assigning % of Stenosis / Diameter reduction (Estimation based on the indirect measurements of the internal carotid artery velocities (ICA PSV). 1. Normal (no stenosis)=ICA PSV < 125 cm/s: ratio < 2.0: ICA EDV<40 cm/s. 2. Less than 50% stenosis=ICA PSV < 125 cm/s: ratio < 2.0: ICA EDV<40 cm/s. 3. 50 to 69% stenosis=ICA PSV of 125 to 230 cm/s: ration 2.0 ? 4.0: ICA EDV 40-100 cm/s. 4. Greater than 70% stenosis to near occlusion= ICA PSV > 230 cm/s: ratio > 4.0: ICA EDV > 100 cm/s. 5. Near occlusion= ICA PSV velocities may be low or undetectable: variable ratio and ICA EDV. 6. Total occlusion=unable to detect flow.
--- NOTE | 2021-03-06 16:01 | ECHOF ---
Referral Reason:CVA MEASUREMENTS -------- HEIGHT: 180.3 cm WEIGHT: 90.7 kg BP: 146/69 IVSd: 1.6 cm (0.6 - 1.1) LVIDd: 5.2 cm (3.9 - 5.3) LVPWd: 1.6 cm (0.6 - 1.1) EDV(Teich): 129 ml IVSs: 2.8 cm LVIDs: 2.4 cm LVPWs: 2.4 cm %IVS Thck: 76 % ESV(Teich): 19 ml EF(Teich): 85 % %FS: 55 % SV(Teich): 110 ml IVC: 15.66 mm LALs A4C: 5.8 cm LAAs A4C: 17.6 cm LAESV A-L A4C: 45 ml LAESV MOD A4C: 43 ml LALs A2C: 6.1 cm LAAs A2C: 20.4 cm LAESV A-L A2C: 57 ml LAESV MOD A2C: 55 ml LAESV(A-L): 52 ml LAESV Index (A-L): 24.66 ml/m Ao Diam: 3.9 cm (2.0 - 3.7) LA Diam: 3.3 cm (2.7 - 3.8) AV Cusp: 2.3 cm (1.5 - 2.6) EPSS: 0.6 cm MV E Elliot: 0.53 m/s MV DecT: 268 ms MV Dec Hockley: 2.0 m/s MV A Elliot: 0.60 m/s MV E/A Ratio: 0.90 MV PHT: 78 ms MR Vmax: 3.22 m/s MR maxP.38 mmHg AV Vmax: 1.01 m/s AV maxP.06 mmHg TR Vmax: 1.64 m/s TR maxP.73 mmHg RAP: 5.00 mmHg RVSP: 15.73 mmHg MV EF SLOPE: 109.95 mm/s (70 - 150) MV EXCURSION: 25.97 mm (> 18.000) FINDINGS -------- This was a technically adequate study. The left ventricular size is normal. There is moderate concentric left ventricular hypertrophy. O verall left ventricular systolic function is normal with, an EF between 55 - 60 %. Normal LAP Grade 1 Diastolic Dysfunction. The right ventricle is normal in size. The left atrial size is normal. Normal LA size by volume 22+/-6 ml/m2. The right atrial size is normal. Contrast study was performed with 2 iv injections of 8 ccs of agitated normal saline, at rest, and wi th cough. Bubble study to rule out shunt. Inconclusive due to image quality. The aortic valve is trileaflet and appears structurally normal. The mitral valve is normal. Mild mitral annular calcification present. There is trace mitral regu rgitation. The tricuspid valve appears structurally normal. Trace tricuspid regurgitation present. Right alhaji tricular systolic pressure is normal at < 35 mmHg. There is no pulmonic regurgitation present. The aortic root size is normal. Normal inferior vena cava with normal inspiratory collapse consistent with estimated right atrial pre ssure of 5 mmHg. There is no pericardial effusion. CONCLUSIONS -------- 1. The left ventricular size is normal. 2. There is moderate concentric left ventricular hypertrophy. 3. Overall left ventricular systolic function is normal with, an EF between 55 - 60 %. 4. Normal LAP Grade 1 Diastolic Dysfunction. 5. Contrast study was performed with 2 iv injections of 8 ccs of agitated normal saline, at rest, and with cough. 6. Bubble study to rule out shunt. No shunt seen. 7. Mild mitral annular calcification present. 8. There is trace mitral regurgitation. 9. Trace tricuspid regurgitation present. 10. There is no pericardial effusion. DIRECTOR PHYSICAL THERAPY: Quynh Madrid, [facility]
[2021-03-06] MEDS: HEPARIN SODIUM,PORCINE/PF 5,000 UNIT/0.5 ML SYRINGE SQ SCH ×2 (16:22→23:39)
[2021-03-06] MEDS ORDERED: hydrALAZINE HCL 20 MG/ML 1 ML VIAL IVP PRN (17:07)
[2021-03-06] MEDS: LOSARTAN 50 MG TAB PO SCH (17:12)
--- NOTE | 2021-03-06 17:41 | P.PN ---
Subjective Progress Note Date: 03/06/21 Patient was seen for a follow-up. Patient now admitted to the room 380 bed 1. Patient denies any new focal symptoms. Continues to have some slurred speech. Feels it is slightly better. Speech therapy was also working with the patient. Objective - Vital Signs Vital signs: Vital Signs Temp 98.0 F 03/06/21 16:00 Pulse 66 03/06/21 16:00 Resp 18 03/06/21 16:00 BP 214/127 03/06/21 16:58 Pulse Ox 95 03/06/21 16:00 Intake & Output 03/05/21 03/06/21 03/06/21 18:59 06:59 18:59 Weight 90.718 kg 90.718 kg - Exam Examination only significant for mild to moderate dysarthria. No aphasia. Patient has very mild flattening of the right nasolabial fold. Tongue protrudes to the midline. Visual rodriguez are full. On muscle strength testing there is no drift and the strength is normal. No ataxia. Sensations are equal with no neglect. - Labs CBC & Chem 7: 03/05/21 11:37 03/05/21 12:47 Labs: Abnormal Lab Results - Last 24 Hours (Table) 03/05/21 03/06/21 Range/Units 11:37 03:46 Hemoglobin A1c 6.1 H (4.0-6.0) % HDL Cholesterol 36.90 L (40.00-60.00) mg/dL Assessment and Plan Assessment: * Acute ischemic stroke, manifesting with moderate dysarthria. Current NIH stroke scale 2. * Bilateral ICA stenosis, 70-75% on the right, and 75-80% on the left. * Hypertension * Dyslipidemia * Tobacco use. Plan: * MRI of the brain revealed acute infarct involving the left posterior lentiform nucleus. * Vascular surgical input appreciated. Carotid Doppler revealed a prominent atherosclerotic change at the bilateral bifurcations. On the left there is mildly increased ICA peak systolic velocity which may reflect moderate 50-69% stenosis in the proximal left ICA. * 2-D echo with bubble study revealed normal left ventricular size. Moderate concentric LVH. EF is between 55-60%. Contrast study was performed with 2 IV injection of 8 mL of agitated normal saline, at rest and with cough. No shunt seen. * Hemoglobin A1c borderline 6.1 * Fasting lipid panel cholesterol 134, LDL 78, HDL 36 and triglycerides 92. Continue high-dose statins Lipitor 80 mg daily. * Agree with starting dual antiplatelet medications, with aspirin 81 mg and Plavix 75 mg. * Permissive hypertension for 24 hours. May treat blood pressure cautiously if it is greater than 200/120. * Speech therapy. * DVT prophylaxis. * Telemetry monitoring
[2021-03-06 21:08] VITALS: TEMP 97.5
[2021-03-07 00:18] VITALS: RESP 16
[2021-03-07] MEDS ORDERED: PANTOPRAZOLE 40 MG TABLET PO SCH (07:30)
[2021-03-07 08:50] VITALS: BP 151/75; PULSE 70
[2021-03-07] MEDS: HEPARIN SODIUM,PORCINE/PF 5,000 UNIT/0.5 ML SYRINGE SQ SCH (08:50)
[2021-03-07] MEDS: LOSARTAN 50 MG TAB PO SCH (08:51)
[2021-03-07] MEDS: ATORVASTATIN 80 MG TAB PO SCH (08:51)
[2021-03-07] MEDS: METOPROLOL TARTRATE 25 MG TAB PO SCH (08:51)
[2021-03-07] MEDS: CLOPIDOGREL 75 MG TAB PO SCH (08:51)
[2021-03-07] MEDS ORDERED: ASPIRIN 81 MG PO SCH (09:00)
[2021-03-07] MEDS ORDERED: amLODIPine 5 MG TAB PO SCH (09:00)
[2021-03-07] MEDS: NICOTINE 21MG/24HR PATCH TRANSDERM SCH (10:08)
--- NOTE | 2021-03-07 10:38 | P.PN ---
Subjective Progress Note Date: 03/07/21 Patient seen and examined sitting up in bed. No acute changes through the night. No new focal deficits. Patient still has some dysarthria. He is eating well and no difficulties with swallowing. Speech therapy had seen him yesterday. Carotid ultrasound ordered with discordant findings compared to CT angiogram of head and neck. Carotid ultrasound right ICA PSV 101.6, ICA/CCA ratio 1.8, left ICA PSV 126.7 ICA/CCA ratio 2.6 with impression stating prominent arthrosclerotic change at the bilateral bifurcations. On the left, there is mildly increased ICA peak systolic velocity and elevated ICA/CCA ratio the may reflect a moderate 50-69% proximal left ICA stenosis. Occluded left ECA. Unable to adequately visualize the left vertebral artery on present exam. Patient states plan is for discharge home today. Neurology has been following along with patient and he is currently on dual antiplatelet therapy as well as high-dose statin. Objective - Vital Signs Vital signs: Vital Signs Temp 97.5 F L 03/06/21 20:00 Pulse 70 03/07/21 08:49 Resp 16 03/07/21 04:00 BP 151/75 03/07/21 08:49 Pulse Ox 95 03/07/21 08:49 Intake & Output 03/06/21 03/07/21 03/07/21 18:59 06:59 18:59 Intake Total 300 240 Balance 300 240 Weight 90.718 kg 91.9 kg Intake: Oral 300 240 Other: # Voids 2 0 # Bowel Movements 0 - Exam General appearance: The patient is alert, oriented, appears in no acute distress. HET: Head is normocephalic and atraumatic. Neck: Supple without lymphadenopathy. Trachea midline. Heart: S1 S2. Regular rate and rhythm. Lungs: Diminished. Extremities: Normal skin color and turgor. No cyanosis, rash, ulceration, clubbing, or edema. Palpable dorsalis pedis pulse right foot, nonpalpable left foot. Good capillary refill bilaterally. Neurological: Strength and sensation are grossly intact. Patient with slurred speech, no other new focal deficits. - Labs CBC & Chem 7: 03/05/21 11:37 03/05/21 12:47 Labs: Abnormal Lab Results - Last 24 Hours (Table) 03/06/21 Range/Units 03:46 HDL Cholesterol 36.90 L (40.00-60.00) mg/dL Assessment and Plan Assessment: 1. Left ICA stenosis, with discordant findings between CT angiogram and carotid ultrasound. 2. Acute left lacunar infarct manifesting with dysarthria 3. History of coronary artery disease status post stenting 4. History of peripheral vascular disease status post intervention 5. History of hypertension and hyperlipidemia 6. Chronic every day smoker, 1 pack per day Plan: 1. Agree with dual antiplatelet therapy and high-dose statin 2. CT angiogram head and neck reviewed by Dr. Marino, imaging does not appear to be consistent with degree of stenosis as documented per CTA will order carotid ultrasound for further evaluation 3. Carotid ultrasound ordered and reviewed 4. Smoking cessation 5. Neurology on consult, appreciate their recommendations 6. Patient is cleared for discharge from vascular surgery. Patient will need outpatient follow up next week to further discuss possible vascular surgical intervention. 7. Please obtain CT angiogram disc Thank you for this consultation, and allowing us take part in the plan of care of your patient during his hospital stay. The impression and plan of care has been dictated as directed. Dr. Lam I performed a history and examination of this patient, discussed the same with the dictator. I agree with the dictator's note ,documented as a scribe. Any additional findings or plans will be noted.
--- NOTE | 2021-03-07 11:14 | P.DS ---
Providers Date of admission: 03/05/21 13:48 Expected date of discharge: 03/07/21 Attending physician: David Ellington Consults: 03/05/21 13:48 Consult Physician Routine Consulting Provider: Kaci De Anda Consult Reason/Comments: CVA Do you want consulting provider notified?: Yes 03/05/21 13:49 Consult Physician Routine Consulting Provider: Kaden Marino Consult Reason/Comments: Carotid stenosis Do you want consulting provider notified?: Yes Primary care physician: David Ellington Hospital Course: HISTORY OF PRESENT ILLNESS This is a 71-year-old male patient of Dr. Ellington and Dr. Jc with past medical history of coronary artery disease, hypertension, hyperlipidemia, peripheral artery disease, COPD, active tobacco use and dependence. Patient states that on Friday morning he woke up and had slurred speech and dry mouth. He denies any drooping of his face and no extremity weakness. Patient waited until Friday and called the office and was instructed to come into the hospital for further evaluation. At the time of this evaluation, patient continues to have slurred speech. He was afebrile, heart rate in the 50s to 80s, initial blood pressure 189/70, pulse ox 90% on room air. Hemoglobin 17.6 otherwise unremarkable CBC. Hemoglobin A1c 6.1. Troponin negative 1. Liver function tests normal. Lipase 61. Coronal virus PCR not detected. BUN 13 and creatinine 0.8. Sodium 135 otherwise electrolytes are within normal limits. Chest x-ray showed no acute cardiopulmonary process. CT angiogram of the head and neck revealed no significant abnormality of the [place] of [place]. Estimated reduction right proximal ICA 70-75% and left ICA 75-80%. MRI of the brain revealed acute left lacunar infarct. Chronic microvascular ischemic changes. Patient is seen today in the emergency center waiting for a cardiac stepdown bed. He has been seen by neurology, consult was added for vascular surgery, echocardiogram report is pending, patient started on baby aspirin and Plavix, high-dose statin, PT, OT and speech therapy consults. 03/07: Carotid ultrasound revealed left carotid stenosis of 50-69% only. Patient has been seen and evaluated by vascular surgery and noted that there is discordant findings between the CT angiogram and carotid ultrasound. There are no agreement to continue dual antiplatelet therapy and high-dose statin. Giselle ent has been cleared from a vascular for discharge with plan for follow-up in the office.patient has been seen and followed by neurology also recommending dual antiplatelet medications with aspirin 81 mg daily, Plavix 75 mg. Patient continues to have slurred speech and working with speech therapy with recommendations to continue outpatient therapy. Patient will be discharged home today in stable condition. ASSESSMENT AND PLAN 1. Acute ischemic left lacunar infarct. 2. Bilateral carotid stenosis. 3. History of coronary artery disease with previous stents. 4. Hypertension. 5. Hyperlipidemia. 6. Peripheral vascular disease. 7. COPD, stable without exacerbation. 8. Tobacco use and dependence. Smoking cessation. 9. COVID-19 testing negative. DISCHARGE PLAN Home without home care. Impression and plan of care have been directed as dictated by the signing physician. Nazanin Patiño nurse practitioner acting as scribe for signing physician. Patient Condition at Discharge: Good Plan - Discharge Summary Discharge Rx Participant: No New Discharge Prescriptions: New Nicotine 21Mg/24Hr Patch [Habitrol] 1 patch TRANSDERM DAILY #30 patch amLODIPine [Norvasc] 5 mg PO DAILY #30 tab Pantoprazole [Protonix] 40 mg PO AC-BRKFST #30 tab Losartan [Cozaar] 100 mg PO DAILY #60 tab Clopidogrel [Plavix] 75 mg PO DAILY #30 tab Continue Metoprolol Tartrate [Lopressor] 25 mg PO BID #60 tab Aspirin 81 mg PO HS Atorvastatin [Lipitor] 80 mg PO DAILY Discontinued lisinopriL [Zestril] 5 mg PO BID #60 tab Discharge Medication List Metoprolol Tartrate [Lopressor] 25 mg PO BID #60 tab 06/05/18 [Rx] Aspirin 81 mg PO HS 03/05/21 [History] Atorvastatin [Lipitor] 80 mg PO DAILY 03/05/21 [History] Clopidogrel [Plavix] 75 mg PO DAILY #30 tab 03/07/21 [Rx] Losartan [Cozaar] 100 mg PO DAILY #60 tab 03/07/21 [Rx] Nicotine 21Mg/24Hr Patch [Habitrol] 1 patch TRANSDERM DAILY #30 patch 03/07/21 [Rx] Pantoprazole [Protonix] 40 mg PO AC-BRKFST #30 tab 03/07/21 [Rx] amLODIPine [Norvasc] 5 mg PO DAILY #30 tab 03/07/21 [Rx] Follow up Appointment(s)/Referral(s): David Ellington MD [Primary Care Provider] - 03/12/21 4:00 pm (Friday) Kaden Marino DO [STAFF PHYSICIAN] - 03/13/21 3:00 pm (Friday) Patient Instructions/Handouts: Carotid Artery Disease (DC), Ischemic Stroke (DC) Discharge Disposition: HOME SELF-CARE
== END 2021-03-07 12:23 | disposition home or self-care (01) | DRG 66 ==
LOC: EC 10:46 → 3SCARD 13:48
PROVIDERS: ADMIT Internal Medicine; ATTEND Internal Medicine
DX: I63.81 Other cerebral infarction due to occlusion or stenosis of small artery (principal); I65.23 Occlusion and stenosis of bilateral carotid arteries; I10 Essential (primary) hypertension; E78.5 Hyperlipidemia, unspecified; G31.89 Other specified degenerative diseases of nervous system; R00.1 Bradycardia, unspecified; R47.1 Dysarthria and anarthria; Z20.822 Contact with and (suspected) exposure to COVID-19; Z71.6 Tobacco abuse counseling; R29.702 NIHSS score 2; I25.10 Atherosclerotic heart disease of native coronary artery without angina pectoris; K21.9 Gastro-esophageal reflux disease without esophagitis; Z95.5 Presence of coronary angioplasty implant and graft; J44.9 Chronic obstructive pulmonary disease, unspecified; I73.9 Peripheral vascular disease, unspecified; F17.210 Nicotine dependence, cigarettes, uncomplicated; I25.2 Old myocardial infarction; Z79.02 Long term (current) use of antithrombotics/antiplatelets; Z79.82 Long term (current) use of aspirin; Z79.899 Other long term (current) drug therapy; Z82.49 Family history of ischemic heart disease and other diseases of the circulatory system
CPT/HCPCS: 36415; 70450; 70496; 70498; 70551; 71046; 80053; 80061; 83036; 83690; 84484; 85025; 85610; 85730; 87635; 93005; 93306; 93880; 96360; 99285

== ENCOUNTER → 2021-05-30 | Outpatient (CLI) | payer MEDICARE ==
--- NOTE | 2021-05-30 12:52 | MR ---
EXAMINATION TYPE: MR angio neck wo/w con DATE OF EXAM: 05/30/2021 COMPARISON: Carotid ultrasound March 06, 2021. CTA neck March 05, 2021 HISTORY: Carotid stenosis, CVA TECHNIQUE: MRA images of the neck without and with IV contrast.. 2-D and 3-D postprocessing imaging is performed on independent workstation and reviewed. Patient was injected with 10 cc of Gadavist for the study. FINDINGS: Normal three-vessel origin from the aortic arch. No significant stenosis identified at this level. Normal origin right common carotid artery from right brachiocephalic artery. Focal narrowing at origin of the left internal carotid artery at carotid bulb causing more prominent AP diameter narr owing down to 2.1 mm but less prominent transverse narrowing. No greater than 50% lumen diameter narr owing clearly seen. There is nonvisualized left external carotid artery consistent with complete occl usion redemonstrated. No significant focal stenosis in the right internal or external carotid artery is identified. Vertebral arteries are patent to basilar junction. Left vertebral artery is larger caliber or dominan t. IMPRESSION: Redemonstration of known complete occlusion of the left external carotid artery at its or igin. Stenosis approaching but under 50% proximal left internal carotid artery remains present.
== END | disposition home or self-care (01) ==
LOC: RADMRIMAIN 11:15
PROVIDERS: ATTEND Psychiatry & Neurology Neurology
DX: I65.22 Occlusion and stenosis of left carotid artery (principal)
CPT/HCPCS: 70549; A9585

== ENCOUNTER → 2023-05-02 | Outpatient (CLI) | payer MEDICARE ==
[2023-05-02 11:09] LABS: ALT 37 U/L (10-49); AST 23 U/L (14-35); Albumin 4.3 g/dL (3.8-4.9); Albumin/Globulin Ratio 1.54 Ratio (1.60-3.17); Alkaline Phosphatase 107 U/L (41-126); BUN/Creat Ratio 18.25 Ratio (12.00-20.00); Blood Urea Nitrogen 14.6 mg/dL (9.0-27.0); Carbon Dioxide 26.9 mmol/L (21.6-31.8); Chloride 103 mmol/L (96-109); Chol/HDL Ratio 3.54 Ratio; Globulin 2.8 g/dL (1.6-3.3); Glucose 116 mg/dL (70-110); LDL Cholesterol,Calculated 83.2 mg/dL (0.0-131.0); Potassium 5.6 mmol/L (3.5-5.5); Sodium 139 mmol/L (135-145); Total Bilirubin 0.6 mg/dL (0.3-1.2); Total Protein 7.1 g/dL (6.2-8.2); VLDL Calculation 19.36 mg/dL (5.00-40.00)
== END | disposition home or self-care (01) ==
LOC: LABWHC1 07:15
PROVIDERS: ATTEND Nurse Practitioner Adult Health
DX: I10 Essential (primary) hypertension (principal); E78.2 Mixed hyperlipidemia
CPT/HCPCS: 36415; 80053; 80061

== ENCOUNTER → 2023-07-24 | Outpatient (CLI) | payer MEDICARE ==
[2023-07-24 11:10] LABS: Chol/HDL Ratio 2.73 Ratio; LDL Cholesterol,Calculated 57.2 mg/dL (0.0-131.0)
[2023-07-24 11:11] LABS: ALT 35 U/L (10-49); AST 25 U/L (14-35); Albumin/Globulin Ratio 1.43 Ratio (1.60-3.17); Alkaline Phosphatase 116 U/L (41-126); BUN/Creat Ratio 18.22 Ratio (12.00-20.00); Blood Urea Nitrogen 16.4 mg/dL (9.0-27.0); Calcium 9.4 mg/dL (8.7-10.3); Carbon Dioxide 25.8 mmol/L (21.6-31.8); Chloride 101 mmol/L (96-109); Globulin 2.8 g/dL (1.6-3.3); Glucose 118 mg/dL (70-110); Sodium 137 mmol/L (135-145); Total Bilirubin 0.5 mg/dL (0.3-1.2); Total Protein 6.8 g/dL (6.2-8.2)
== END | disposition home or self-care (01) ==
LOC: LABWHC1 07:01
PROVIDERS: ATTEND Internal Medicine Interventional Cardiology
DX: I10 Essential (primary) hypertension (principal); E78.2 Mixed hyperlipidemia
CPT/HCPCS: 36415; 80053; 80061

== ENCOUNTER → 2023-11-28 | Outpatient (CLI) | payer MEDICARE ==
[2023-11-28 18:24] LABS: HCT 51.3 % (39.6-50.0); MCH 29.9 pg (27.0-32.0); MCHC 33.1 g/dL (32.0-37.0); MCV 90.3 FL (80.0-97.0); Mean Platelet Volume 11.4 FL (9.5-12.2); NRBC Per 100 WBC 0 X 10*3/uL (0.00-0.01); Platelet Count 255 X 10*3/uL (140-440); RBC 5.68 X 10*6/uL (4.40-5.60); RDW 15.8 % (11.5-14.5)
[2023-11-28 18:44] LABS: Blood Urea Nitrogen 13.1 mg/dL (9.0-27.0); Chloride 99 mmol/L (96-109); Potassium 4.4 mmol/L (3.5-5.5); Sodium 137 mmol/L (135-145)
== END | disposition home or self-care (01) ==
LOC: LABWHC1 13:39
PROVIDERS: ATTEND Internal Medicine Interventional Cardiology
DX: Z01.812 Encounter for preprocedural laboratory examination (principal); I70.213 Atherosclerosis of native arteries of extremities with intermittent claudication, bilateral legs
CPT/HCPCS: 36415; 80051; 82565; 84520; 85027

== ENCOUNTER 2023-12-02 10:42 | Day surgery (SDC) | payer MEDICARE ==
[~2023-12-02 10:42] MED LIST changes: +ALPRAZolam 0.5 MG TAB PO PRN; -ASPIRIN 325 MG TAB PO ONE; +ASPIRIN 325 MG TAB PO PRN; +EMPTY BAG 1 BAG with SODIUM CHLORIDE 0.9% 1,000 ML IV SCH; +HEPARIN SODIUM,PORCINE (1 ML) 2,500 UNIT in SODIUM CHLORIDE 0.9% 250 ML IRRIGATION PRN; -SODIUM CHLORIDE 0.9% 1,000 ML in EMPTY BAG 1 BAG IV ONE; +ZOLPIDEM 5 MG TAB PO PRN
[2023-12-02] MEDS: SODIUM CHLORIDE 0.9% 1,000 ML IV ONE (10:53)
[2023-12-02] MEDS ORDERED: LIDOCAINE 1% INJ 10MG/ML (20 ML MDV) ONE (11:38)
[2023-12-02 11:40] VITALS: RESP 16; TEMP 97.8
[2023-12-02] MEDS ORDERED: VERAPAMIL 2.5 MG/ML 2 ML AMP ONE (12:19)
[2023-12-02] MEDS: MIDAZOLAM 2 MG/2 ML VIAL IVP ONE (12:20)
[2023-12-02] MEDS: LIDOCAINE 1% INJ 10MG/ML (20 ML MDV) SQ ONE (12:36)
[2023-12-02] MEDS: IOPAMIDOL-370 200ML BTL INJ ONE (12:52)
[2023-12-02] MEDS ORDERED: NALOXONE 0.4 MG/ML 1 ML VIAL IVP PRN (12:56)
[2023-12-02] MEDS: HEPARIN SODIUM,PORCINE 10,000 UNIT in SODIUM CHLORIDE 0.9% 1,000 ML IRRIGATION PRN (12:59)
[2023-12-02] MEDS ORDERED: SODIUM CHLORIDE 0.9% 1,000 ML in EMPTY BAG 1 BAG IV SCH (13:00)
--- NOTE | 2023-12-02 13:01 | P.PCN ---
Date of Procedure: 12/02/23 Operative Findings: AN ABDOMINAL AORTOGRAM AND BILATERAL LOWER EXTREMITIES RUNOFF PERFORMING PHYSICIAN: Didier Christina MD PROCEDURE PERFORMED: 1. An abdominal aortogram 2. Bilateral lower extremities runoff 3. Ultrasound-guided access of the right common femoral artery INDICATION: Bilateral lower extremities intermittent claudication in this 73-year-old gentleman who is known to have PAD with prior angioplasty of the left SFA in 2012. Recent arterial duplex study was performed and showed severe thrombotic disease with severe bilateral SFA disease. Because he continues to be symptomatic he was brought to undergo an aortogram with runoff COMPLICATION: None LEVEL OF SEDATION: Moderate was sedation length of 25-minute APPROACH: Right common femoral artery PROCEDURE DESCRIPTION: After obtaining informed consent and explaining the procedure benefits, risks, and complications, the patient was brought to the cardiac oven laborer. The right groin was prepped and draped in sterile fashion. The right common femoral artery was cannulated using micropuncture technique, under ultrasound guidance. A micropuncture wire was advanced, and the micropuncture sheath was advanced over the wire, then the micropuncture sheath was exchanged over an 0.35 wire into a 5-Upper Sorbian sheath dilator assembly then the wire and dilator were removed and sheath was flushed. We did an abdominal aortogram and bilateral lower extremities runoff using 5- Upper Sorbian pigtail catheter using a power injection. The catheter was initially placed at the level of the renal arteries, and it was pulled into above the bifurcation of the aorta into right and left common iliac arteries. The procedure was completed and there was no complications. SELECTIVE PERIPHERAL ANGIOGRAM: The abdominal aorta: Calcified with mild disease only. The common iliac arteries: The right and left common iliac arteries appear to have mild disease only. The external iliac arteries: The right external iliac artery appears to have mild disease only. The left external iliac artery appears to be angiographically normal The internal iliac arteries: Both internal iliacs are patent The common femoral arteries: Both common femoral arteries appear to have mild disease only Superficial femoral arteries: The right SFA has a tight lesion appears to be focal in the midportion. The left SFA is occluded and reconstituted by the Otto's canal Popliteal arteries: Both popliteal appears to have mild disease only Below the knees: Three-vessel runoff below the knee bilaterally CONCLUSION: Severe disease involving the right SFA Occluded left SFA POSTPROCEDURE MANAGEMENT: DIGITAL PUBLISHING SPECIALIST to be performed in the next few weeks
[2023-12-02 16:26] VITALS: BP 155/72; PULSE 50
--- NOTE | 2023-12-02 16:52 | IR ---
EXAMINATION TYPE: IR angio abdominal w runoff DATE OF EXAM: 12/02/2023 FLUOROSCOPY Abdominal aortic injection with runoff, 1.9 MINS FLUOROSCOPY TIME, 96.5 mGym2. 146 images are provid ed.
== END 2023-12-02 18:01 | disposition home or self-care (01) ==
LOC: CATHCVL 10:42
PROVIDERS: ATTEND Internal Medicine Interventional Cardiology
DX: I70.213 Atherosclerosis of native arteries of extremities with intermittent claudication, bilateral legs (principal)
CPT/HCPCS: 36200; 75625; 75716; C1769 ×4; C1894 ×2; J2250; J1644; J2001; Q9967

== ENCOUNTER 2023-12-31 12:50 | Inpatient (IN) | payer MEDICARE ==
[2023-12-31] MEDS: IOPAMIDOL-370 100ML BTL INJ ONE (09:53)
[2023-12-31] MEDS ORDERED: hydrALAZINE HCL 20 MG/ML 1 ML VIAL ONE (18:02)
[2023-12-31] MEDS ORDERED: METOPROLOL TARTRATE 25 MG TAB ONE (21:00)
[2023-12-31] MEDS ORDERED: lisinopriL 20 MG TAB ONE (21:00)
[2024-01-01] MEDS ORDERED: ASPIRIN 81 MG ONE (07:37)
[2024-01-07] MEDS ORDERED: MIDAZOLAM 2 MG/2 ML VIAL ONE (10:05)
[2024-01-07] MEDS ORDERED: HEPARIN SODIUM 1,000 UN/ML (10ML VL) ONE (10:05)
[2024-01-07] MEDS ORDERED: fentaNYL (PF) 50 MCG/ML 2 ML AMP ONE (11:04)
--- NOTE | 2024-01-09 15:54 | PTCA ---
PERCUTANEOUSTRANS CORORONARY ANGIOGRAPHY PERFORMING PHYSICIAN: Didier Christina. PROCEDURES PERFORMED: 1. Successful balloon angioplasty and stenting of the left superficial femoral artery with a good angiographic result. 2. Adjunctive use of intravascular ultrasound and lithotripsy balloon. 3. Ultrasound-guided access of the right common femoral artery and left posterior tibial artery. 4. Successful balloon angioplasty of the left popliteal artery as well. 5. Left lower extremity angiogram and right common femoral artery angiogram. INDICATION: Symptomatic 73-year-old gentleman who was experiencing intermittent claudication and underwent an angiogram that showed occluded left SFA. APPROACH: Right common femoral artery and left posterior tibial artery. PROCEDURE DESCRIPTION: After obtaining an informed consent, the patient was brought to cardiac optical laboratory mechanic. The right common femoral artery was cannulated using micropuncture technique under ultrasound guidance. The micropuncture wire passed easily. Then, I placed a 6-Filipino 70 cm sheath at the right common femoral artery. Going up and over was performed using 5-Filipino RIM catheter with 0.035 stiff Glidewire. Subsequently, I did selective left lower extremity angiogram which showed occluded left SFA and 3-vessel runoff below the knee. I crossed the chronic total occlusion, but I was in the subintimal space in antegrade technique. I decided to cross in retrograde technique to stay in the true lumen. That was performed after I placed a 5/6 slender sheath in the left posterior tibial artery. I was able to cross using 0.018 faustin tip Glidewire, and I did intravascular ultrasound which showed I was in the true lumen most of the time. I decided to finish from down. After the IVUS, I did perform atherectomy using the HawkOne device, and then after that I did balloon angioplasty using initially the shockwave balloon and subsequently 6 mm drug-coated balloon. The final angiogram showed an area of dissection proximally and distally, which I decided to cover with Zilver PTX drug-coated stent. The proximal stent was 7.0 x 80 mm and the distal stent was 6.0 x 140 mm. Balloon angioplasty also was performed for the left popliteal. The final angiogram showed excellent angiographic results, and the procedure was completed with no complication. After that, I did exchange my long sheath into short sheath using 0.035 stiff Glidewire before I did selective right common femoral artery angiogram. The procedure was completed with no complication. POSTPROCEDURE MANAGEMENT: 1. Dual anti-platelet therapy. 2. Aggressive cholesterol control. 3. Follow up with the patient. MMODL / IJN: [id number] /
--- NOTE | 2024-01-09 15:57 | CC ---
CARDIAC CATHETERIZATION REPORT PERFORMING PHYSICIAN: Didier Christina. PROCEDURES PERFORMED: 1. Successful angioplasty and stenting of the right SFA using Zilver PTX drug- coated stent with adjunctive use of atherectomy and lithotripsy balloon. 2. Intravascular ultrasound of the right SFA. 3. Ultrasound-guided access of the right posterior tibial artery. 4. Right lower extremity angiogram. INDICATION: Symptomatic 73-year-old gentleman with the intermittent claudication and angiogram, confirmed severe disease involving the right SFA. APPROACH: Right posterior tibial artery. COMPLICATIONS: None. LEVEL OF SEDATION: Moderate, sedation length of 40 minutes. PROCEDURE DESCRIPTION: After obtaining an informed consent, the patient was brought to the cardiac yard laborer. The right posterior tibial artery was cannulated using micropuncture technique under ultrasound guidance, the micropuncture wire passed easily. Then, I placed a slender 5/6-Macedonian in the right posterior tibial artery. Subsequently, the side-arm of the sheath was connected into cocktail including verapamil and heparin and nitroglycerin. Also, systemic anticoagulation was initiated using heparin. Subsequently, I did an angiogram, which revealed severe right SFA disease. I did wire the SFA using 0.014 wire. Intravascular ultrasound was performed and showed heavily calcified right SFA with an arc of calcium about at least 180 degrees. I did atherectomy using the Hawk device. After that, I did lithotripsy balloon using 6 mm balloon before I did an angiogram, which revealed dissection involving the proximal edge of the lesion. I did stent that using Zilver PTX drug-coated stent, which was postdilated using 6 mm balloon with the final angiogram showing excellent angiographic results and completion angiogram showed 3 vessel runoff below the knee. The procedure was completed with no complication. POSTPROCEDURE MANAGEMENT: 1. Dual anti-platelet therapy. 2. Continues to provide less duplex study. 3. Follow up with Dr. Jc. MMODL / IJN: [id number] /
== END 2024-01-01 09:59 | disposition home or self-care (01) | DRG 272 ==
LOC: CATHCVL 12:50 → 6NMEDSUR 14:50
PROVIDERS: ADMIT Internal Medicine Interventional Cardiology; ATTEND Internal Medicine Interventional Cardiology
PROC: 04FK3ZZ Fragmentation of Right Femoral Artery, Percutaneous Approach (ICD-10-PCS; principal; 2023-12-31 12:00)
PROC: B44LZZ3 Ultrasonography of Femoral Artery, Intravascular (ICD-10-PCS; principal; 2023-12-31 12:00)
PROC: 047K34Z Dilation of Right Femoral Artery with Drug-eluting Intraluminal Device, Percutaneous Approach (ICD-10-PCS; principal; 2023-12-31 12:00)
PROC: 04CK3ZZ Extirpation of Matter from Right Femoral Artery, Percutaneous Approach (ICD-10-PCS; principal; 2023-12-31 12:00)
PROC: 047M3ZZ Dilation of Right Popliteal Artery, Percutaneous Approach (ICD-10-PCS; principal; 2023-12-31 12:00)
DX: I70.211 Atherosclerosis of native arteries of extremities with intermittent claudication, right leg (principal); F17.210 Nicotine dependence, cigarettes, uncomplicated; I10 Essential (primary) hypertension; Z71.6 Tobacco abuse counseling; E78.5 Hyperlipidemia, unspecified; Z95.5 Presence of coronary angioplasty implant and graft; I25.10 Atherosclerotic heart disease of native coronary artery without angina pectoris

== ENCOUNTER → 2024-01-07 | Day surgery (SDC) | payer MEDICARE ==
[~2024-01-07] MED LIST changes: -ALPRAZolam 0.25 MG TAB PO PRN; -ALPRAZolam 0.5 MG TAB PO PRN; -ASPIRIN 325 MG TAB PO PRN; -EMPTY BAG 1 BAG with SODIUM CHLORIDE 0.9% 1,000 ML IV SCH; -HEPARIN SODIUM,PORCINE (1 ML) 2,500 UNIT in SODIUM CHLORIDE 0.9% 250 ML IRRIGATION PRN; +HEPARIN SODIUM,PORCINE 10,000 UNIT/ML 1 ML VIAL ONE; +HEPARIN SODIUM,PORCINE 5,000 UNIT/ML 1 ML VIAL ONE; +MIDAZOLAM 2 MG/2 ML VIAL ONE; +NITROGLYCERIN 1000MCG/10ML SYRINGE ONE; +SODIUM CHLORIDE 0.9% 1,000 ML BAG ONE; +SODIUM CHLORIDE 0.9% 250 ML BAG ONE; +SODIUM CHLORIDE 0.9% 500 ML BAG ONE; -ZOLPIDEM 5 MG TAB PO PRN; +fentaNYL (PF) 50 MCG/ML 2 ML AMP ONE; +niCARdipine 25 MG/10 ML VIAL ONE
[2024-01-07] MEDS: IOPAMIDOL-370 100ML BTL INJ ONE (11:21)
--- NOTE | 2024-01-09 15:57 | CC ---
CARDIAC CATHETERIZATION REPORT PERFORMING PHYSICIAN: Didier Christina. PROCEDURES PERFORMED: 1. Successful angioplasty and stenting of the right SFA using Zilver PTX drug- coated stent with adjunctive use of atherectomy and lithotripsy balloon. 2. Intravascular ultrasound of the right SFA. 3. Ultrasound-guided access of the right posterior tibial artery. 4. Right lower extremity angiogram. INDICATION: Symptomatic 73-year-old gentleman with the intermittent claudication and angiogram, confirmed severe disease involving the right SFA. APPROACH: Right posterior tibial artery. COMPLICATIONS: None. LEVEL OF SEDATION: Moderate, sedation length of 40 minutes. PROCEDURE DESCRIPTION: After obtaining an informed consent, the patient was brought to the cardiac custodial laborer. The right posterior tibial artery was cannulated using micropuncture technique under ultrasound guidance, the micropuncture wire passed easily. Then, I placed a slender 5/6-Turkish in the right posterior tibial artery. Subsequently, the side-arm of the sheath was connected into cocktail including verapamil and heparin and nitroglycerin. Also, systemic anticoagulation was initiated using heparin. Subsequently, I did an angiogram, which revealed severe right SFA disease. I did wire the SFA using 0.014 wire. Intravascular ultrasound was performed and showed heavily calcified right SFA with an arc of calcium about at least 180 degrees. I did atherectomy using the Hawk device. After that, I did lithotripsy balloon using 6 mm balloon before I did an angiogram, which revealed dissection involving the proximal edge of the lesion. I did stent that using Zilver PTX drug-coated stent, which was postdilated using 6 mm balloon with the final angiogram showing excellent angiographic results and completion angiogram showed 3 vessel runoff below the knee. The procedure was completed with no complication. POSTPROCEDURE MANAGEMENT: 1. Dual anti-platelet therapy. 2. Continues to provide less duplex study. 3. Follow up with Dr. Jc. MMODL / IJN: [id number] /
== END ==
LOC: CATHCVL 07:36
PROVIDERS: ATTEND Internal Medicine Interventional Cardiology
DX: I70.213 Atherosclerosis of native arteries of extremities with intermittent claudication, bilateral legs
CPT/HCPCS: 37252

== ENCOUNTER → 2024-04-14 | Outpatient (CLI) | payer MEDICARE ==
[2024-04-14 16:06] LABS: ALT 31 U/L (10-49); AST 25 U/L (14-35); Alkaline Phosphatase 104 U/L (41-126); BUN/Creat Ratio 18.62 Ratio (12.00-20.00); Blood Urea Nitrogen 14.9 mg/dL (9.0-27.0); Calcium 9.6 mg/dL (8.7-10.3); Carbon Dioxide 27.6 mmol/L (21.6-31.8); Chloride 104 mmol/L (96-109); Chol/HDL Ratio 2.77 Ratio; Globulin 2.5 g/dL (1.6-3.3); Glucose 111 mg/dL (70-110); LDL Cholesterol,Calculated 61.6 mg/dL (0.0-131.0); Potassium 4.8 mmol/L (3.5-5.5); Sodium 138 mmol/L (135-145); Total Bilirubin 0.7 mg/dL (0.3-1.2); Total Protein 6.5 g/dL (6.2-8.2); VLDL Calculation 16.36 mg/dL (5.00-40.00)
== END | disposition home or self-care (01) ==
LOC: LABWHC1 10:35
PROVIDERS: ATTEND Internal Medicine Interventional Cardiology
DX: E78.2 Mixed hyperlipidemia (principal)
CPT/HCPCS: 36415; 80053; 80061

== ENCOUNTER → 2024-10-07 | Outpatient (CLI) | payer MEDICARE ==
[2024-10-07 15:48] LABS: ALT 40 U/L (10-49); AST 30 U/L (14-35); Albumin 4.2 g/dL (3.8-4.9); Albumin/Globulin Ratio 1.35 Ratio (1.60-3.17); Alkaline Phosphatase 108 U/L (41-126); Calcium 9.9 mg/dL (8.7-10.3); Carbon Dioxide 27.4 mmol/L (21.6-31.8); Chloride 100 mmol/L (96-109); Chol/HDL Ratio 2.78 Ratio; Globulin 3.1 g/dL (1.6-3.3); Glucose 114 mg/dL (70-110); Potassium 5.2 mmol/L (3.5-5.5); Sodium 138 mmol/L (135-145); Total Bilirubin 0.7 mg/dL (0.3-1.2); Total Protein 7.3 g/dL (6.2-8.2); VLDL Calculation 17.94 mg/dL (5.00-40.00)
== END | disposition home or self-care (01) ==
LOC: LABWHC1 08:21
PROVIDERS: ATTEND Internal Medicine Interventional Cardiology
DX: E78.2 Mixed hyperlipidemia (principal)
CPT/HCPCS: 36415; 80053; 80061